=== PATIENT | female | born 1955 | race Caucasian/White ===

== ENCOUNTER 2016-07-29 14:01 | Emergency (ER) | payer OTHER ==
[2016-07-29 14:20] VITALS: BMI 30.8
[2016-07-29] MEDS ORDERED: ONDANSETRON *ODT* 4 MG TABLET SL ONE (15:20)
[2016-07-29] MEDS ORDERED: RANITIDINE HCL 150 MG TABLET (FP) PO ONE (15:20)
--- NOTE | 2016-07-29 15:20 | PDOC ---
History of Present Illness - General Chief Complaint: Pain Stated Complaint: ABD PAIN, VOMITING Time Seen by Provider: 07/29/16 15:03 History Source: Patient Exam Limitations: No Limitations - History of Present Illness Initial Comments: CHIEF COMPLAINT: 61 y/o afebrile female with PMH HLD c/o abd pain, nausea and vomiting since last night. HISTORY OF PRESENT ILLNESS: The patient states last night she started vomiting and has vomited multiple times throughout the night. Her abdomen is now sore and she tried to eat some food today but started vomiting again. She denies f/c , QUINTERO, cough, CP, SOB, back pain, hematuria, dysuria, diarrhea, constipation. Vital signs on arrival are within normal limits. REVIEW OF SYSTEMS: GENERAL/CONSTITUTIONAL: No fever/chills. No weakness. No weight change. HEAD, EYES, EARS, NOSE AND THROAT: No change in vision. No ear pain or discharge. No sore throat. CARDIOVASCULAR: No chest pain or shortness of breath. RESPIRATORY: No cough, wheezing, or hemoptysis. GASTROINTESTINAL: +abd pain, nausea, vomiting. No diarrhea or constipation. GENITOURINARY: No dysuria, frequency, or change in urination. MUSCULOSKELETAL: No joint or muscle swelling or pain. No neck or back pain. SKIN: No rash or easy bruising. NEUROLOGIC: No headache, vertigo, loss of consciousness, or loss of sensation. PSYCHIATRIC: No depression or anxiety. ENDOCRINE: No increased thirst. No abnormal weight change. HEMATOLOGIC/LYMPHATIC: No anemia, easy bleeding, or history of blood clots. ALLERGIC/IMMUNOLOGIC: No hives or skin allergy. No latex allergy. PHYSICAL EXAM: GENERAL: The patient is awake, alert, and fully oriented, in no acute distress. She is non-toxic but ill appearing. HEAD: Normal with no signs of trauma. ENT: Pupils equal, round and reactive to light, extraocular movements intact, sclera anicteric, conjunctiva clear. Neck supple. LUNGS: Clear to auscultation bilaterally. Normal excursion. No respiratory distress or use of accessory muscles. CV: RRR, S1/S2, no MRG. Cap refill < 2 sec. ABDOMEN: Soft, non-distended, TTP of epigastric region. No rebound, guarding or rigidity. BACK: No CVA TTP b/l. EXTREMITIES: Normal range of motion, no edema. NEUROLOGICAL: Normal speech, normal gait. CN II-XII grossly intact. PSYCH: Normal mood, normal affect. SKIN: Warm, dry, normal turgor, no rashes or lesions noted. Past History - Past Medical History Allergies/Adverse Reactions: Allergies Allergy/AdvReac Type Severity Reaction Status Date / Time No Known Allergies Allergy Verified 07/29/16 14:21 Home Medications: Ambulatory Orders Atorvastatin Ca [Lipitor] 10 mg PO HS 08/14/15 Cholecalciferol (Vitamin D3) [Vitamin D3] 2,000 unit PO DAILY 08/14/15 Fish Oil/Borage/Flax/Om3,6,9#1 [[place] 3-6-9 Complex Softgel] 1 each PO DAILY Gluc Nguyễn/MSM/Magnesium/Vit C [Glucosamine Complex-MSM Cap] 375 mg PO DAILY Ondansetron [Zofran Odt -] 4 mg SL TID #10 od.tablet 07/29/16 Ranitidine HCl [Zantac] 150 mg PO BID #10 tablet 07/29/16 GI Disorders: Yes (HEMORRHOIDS, POLYPS) Hypercholesterolemia: Yes - Psycho/Social/Smoking Cessation Hx Suicidal Ideation: No Smoking History: Never smoked Have you smoked in the past 12 months: No Information on smoking cessation initiated: No Hx Alcohol Use: Yes (SOCIAL) Drug/Substance Use Hx: No *Physical Exam - Vital Signs Last Vital Signs Temp Pulse Resp BP Pulse Ox 98.3 F 84 18 141/76 98 07/29/16 14:17 07/29/16 14:17 07/29/16 14:17 07/29/16 14:17 07/29/16 14:17 Medical Decision Making - Medical Decision Making A/P: 61 y/o afebrile female with gastroenteritis. Plan is as follows: 1. UA/culture 2. PO zantac 3. SL zofran Laboratory Tests 07/29/16 16:00 Urine Color Yellow Urine Appearance Slcloudy Urine pH 5.0 Ur Specific [place] 1.029 Urine Protein 2+ H Urine Glucose (UA) 2+ H Urine Ketones Trace H Urine Blood 3+ H Urine Nitrite Negative Urine Bilirubin Negative Urine Urobilinogen Negative Ur Leukocyte Esterase Negative Urine RBC 218 Urine WBC 6 Ur Epithelial Cells Rare Urine Mucus Few The patient states she feels much better since having zofran and zantac. Repeat abdominal exam reveals no TTP. Will d/c to home with rx for zantac and zofran. Instructed the patient to drink only fluids for the rest of the night and f/u with her PCP within 1 week for repeat UA. I informed her that if her UA does not show a difference when rechecked she may need to f/u with a urologist. The patient informs me that her sister and her mother had kidney disease unrelated to HTN or diabetes and her sister from kidney disease. THe patient has been told she has protein and blood in her urine in the past but hasn't followed up. I informed her of the importance of follow up and her and her daughter tell me she will follow up. The patient was instructed to return to the ER with any worsening or concerning symptoms. The patient verbalizes understanding of all instructions, has no further questions and is awaiting discharge. *DC/Admit/Observation/Transfer Diagnosis at time of Disposition: Ketonuria, Proteinuria, Vomiting - Discharge Dispostion Disposition: HOME Condition at time of disposition: Improved - Prescriptions Prescriptions: Ranitidine HCl [Zantac] 150 mg PO BID #10 tablet Ondansetron [Zofran Odt -] 4 mg SL TID #10 od.tablet - Referrals Referrals: Kierra Srivastava MD [Primary Care Provider] - Call tomorrow Wyatt Chacko MD [Staff Physician] - Call tomorrow - Patient Instructions Printed Discharge Instructions: DI for Vomiting -- Adult, [place] Diet, DI for Hematuria, Protein, Urine Additional Instructions: Discharge Instructions: -Take mediation as prescribed if needed for abdominal pain and nausea/vomiting -Drink plenty of fluids -Follow up with Dr. Mejias and Dr. Chacko as soon as possible for repeat urinalysis. -Return to the ER immediately with any worsening or concerning symptoms
[2016-07-29] MEDS ORDERED: ONDANSETRON *ODT* 4 MG TABLET ONE (15:36)
[2016-07-29] MEDS ORDERED: RANITIDINE HCL 150 MG TABLET (FP) ONE (15:36)
[2016-07-29 16:33] LABS: URINE APPEARANCE SLCLOUDY; URINE BILIRUBIN NEGATIVE (NEGATIVE); URINE COLOR YELLOW; URINE GLUCOSE (UA) 2+ (NEGATIVE); URINE KETONE TRACE (NEGATIVE); URINE LEUK ESTERASE NEGATIVE (NEGATIVE); URINE NITRITE NEGATIVE (NEGATIVE); URINE UROBILINOGEN NEGATIVE E.U./dl (0.2-1.0)
[2016-07-29 16:50] LABS: URINE BLOOD 3+ (NEGATIVE); URINE PROTEIN 2+ (NEGATIVE)
[2016-07-29 16:51] LABS: URINE MUCUS FEW; URINE RBC 218 /hpf (0-3); URINE WBC 6 /hpf (3-5)
[2016-07-29 18:46] VITALS: BP 130/87; PULSE 88; TEMP 98
== END 2016-07-29 18:46 | disposition home or self-care (01) ==
LOC: JER 14:01
DX: K52.9 Noninfective gastroenteritis and colitis, unspecified (principal); R82.4 Acetonuria; R80.8 Other proteinuria
CPT/HCPCS: 81003; 81015; 87086; 99284-25

== ENCOUNTER 2016-10-18 15:59 | Inpatient (IN) | payer OTHER ==
--- NOTE | 2016-10-18 17:23 | PDOC ---
History of Present Illness - General History Source: Patient Exam Limitations: No Limitations - History of Present Illness Initial Comments: 10/18/16 18:24 The patient is a 61 year old female, with a significant past medical history of hyperlipidemia, hemorrhoids, and polyps, who presents to the emergency department complaining of abdominal pain, nausea, vomiting, and diarrhea for approximately 5 days. The patient reports her symptoms began after having a meal at [facility] this past weekend. She describes her abdominal pain at that time as dull and constant. Since then, her symptoms have become intermittent. The patient reports 2 episodes of yellow-brown diarrhea today, and several episodes of non bloody/non melantoic diarrhea since her symptoms began. She she is unable to keep down any solids or fluids, with emetic episodes being non-bloody/non-bilious. The patient denies any fever, chills, cough, headache, or dizziness. The patient reports presenting to her PCP Friday and for her symptoms, where she was diagnosed with gastroenteritis was given omeprazole, reglan. She reports presenting to the ED in July for similar symptoms, where blood was found in her urine, and she was referred to a urologist. Urologist did not report any abnormalities. The patient currently denies dysuria, hematuria, frequency, or urgency. The patient denies any chest pain, shortness of breath, diaphoresis, or palpitations. Allergies: None reported. Past Surgical History: None reported. Social History: Non-smoker. Denies alcohol or drug use. PCP: Dr. Srivastava <Britta Mckeon - Last Filed: 10/18/16 18:25> <Ludmila Pringle - Last Filed: 10/19/16 01:50> <Marcial James - Last Filed: 10/19/16 02:33> <Aaron Chavez - Last Filed: 10/19/16 10:09> - General Chief Complaint: Pain Stated Complaint: ABD PAIN, VOMITING Time Seen by Provider: 10/18/16 16:55 Past History <Britta Mckeon - Last Filed: 10/18/16 18:25> <Ludmila Pringle - Last Filed: 10/19/16 01:50> <Marcial James - Last Filed: 10/19/16 02:33> - Past Medical History GI Disorders: Yes (HEMORRHOIDS, POLYPS) Hypercholesterolemia: Yes - Psycho/Social/Smoking Cessation Hx Suicidal Ideation: No Smoking History: Never smoked Have you smoked in the past 12 months: No Information on smoking cessation initiated: No Hx Alcohol Use: No Drug/Substance Use Hx: No Substance Use Type: None <Aaron Chavez - Last Filed: 10/19/16 10:09> - Past Medical History Allergies/Adverse Reactions: Allergies Allergy/AdvReac Type Severity Reaction Status Date / Time No Known Allergies Allergy Verified 10/18/16 16:13 Home Medications: Ambulatory Orders Atorvastatin Ca [Lipitor] 10 mg PO HS 08/14/15 Cholecalciferol (Vitamin D3) [Vitamin D3] 2,000 unit PO DAILY 08/14/15 Fish Oil/Borage/Flax/Om3,6,9#1 [[place] 3-6-9 Complex Softgel] 1 each PO DAILY Gluc Nguyễn/MSM/Magnesium/Vit C [Glucosamine Complex-MSM Cap] 375 mg PO DAILY Ondansetron [Zofran Odt -] 4 mg SL TID #10 od.tablet 07/29/16 Ranitidine HCl [Zantac] 150 mg PO BID #10 tablet 07/29/16 Review of Systems - Review of Systems Able to Perform ROS?: Yes Comments:: 10/18/16 18:24 CONSTITUTIONAL: No reported: Fever, Chills, Diaphoresis, Generalized Weakness, Malaise, Loss of Appetite HEENT: No reported: Rhinorrhea, Nasal Congestion, Throat Pain, Throat Swelling, Difficulty Swallowing, Mouth Swelling, Ear Pain, Eye Pain, Visual Changes CARDIOVASCULAR: No reported: Chest Pain, Syncope, Palpitations, Irregular Heart Rate, Lightheadedness, Peripheral Edema RESPIRATORY: No reported: Cough, Shortness of Breath, SOB with Exertion, Orthopnea, Wheezing , Stridor, Hemoptysis GASTROINTESTINAL: +Abdominal pain, +nausea, +vomiting, +diarrhea. No reported: Abdominal Distension, Constipation, Melena, Hematochezia GENITOURINARY: No reported: Dysuria, Frequency, Urgency, Hesitancy, Flank Pain, Genital Pain MUSCULOSKELETAL: No reported: Myalgia, Arthralgia, Joint Swelling, Back pain, Neck Pain SKIN: No reported: Rash, Itching, Pallor HEMEATOLOGIC/IMMUNOLOGIC: No reported: Easy Bleeding, Easy Bruising, Lymphadenopathy, Frequent infections ENDOCRINE: No reported: Unexplained Weight Gain, Unexplained Weight Loss, Heat Intolerance , Cold Intolerance NEUROLOGIC: No reported: Headache, Focal Weakness, Paresthesias, Vertigo, Lightheadedness, Unsteady Gait, Seizure, Mental Status Changes, Incontinence PSYCHIATRIC: No reported: Anxiety, Depression <Britta Mckeon - Last Filed: 10/18/16 18:25> *Physical Exam - Vital Signs Last Vital Signs Temp Pulse Resp BP Pulse Ox 99.3 F 84 18 137/57 96 10/18/16 16:12 10/18/16 16:12 10/18/16 16:12 10/18/16 16:12 10/18/16 16:12 - Physical Exam Comments: 10/18/16 18:24 GENERAL: The patient is awake, alert, and fully oriented, Nontoxic - in no acute distress. HEAD: Normocephalic, atraumatic. EYES: extraocular movements intact, sclera anicteric, conjunctiva clear. ENT: Normal voice, Moist mucous membranes. NECK: Normal range of motion, supple LUNGS: Breath sounds equal, clear to auscultation bilaterally. No wheezes, no rhonchi, no rales. HEART: Regular rate and rhythm, without murmur, rub or gallop. ABDOMEN:+Mild diffuse abdominal tenderness. Soft, normoactive bowel sounds. No guarding, no rebound. No CVA tenderness. EXTREMITIES: Normal range of motion, no edema. No clubbing or cyanosis. No cords, erythema, or tenderness. NEUROLOGICAL: No facial asymmetry, Normal speech. PSYCH: Normal mood, normal affect. SKIN: Warm, Dry, normal turgor. <Britat Mckeon - Last Filed: 10/18/16 18:25> - Vital Signs Last Vital Signs Temp Pulse Resp BP Pulse Ox 98.6 F 69 17 142/68 95 10/18/16 21:12 10/19/16 01:04 10/19/16 01:04 10/19/16 01:04 10/19/16 01:04 <Ludmila Pringle - Last Filed: 10/19/16 01:50> - Vital Signs Last Vital Signs Temp Pulse Resp BP Pulse Ox 98.6 F 69 17 142/68 95 10/18/16 21:12 10/19/16 01:04 10/19/16 01:04 10/19/16 01:04 10/19/16 01:04 <Marcial James - Last Filed: 10/19/16 02:33> - Vital Signs Last Vital Signs Temp Pulse Resp BP Pulse Ox 99.3 F 84 18 137/57 96 10/18/16 16:12 10/18/16 16:12 10/18/16 16:12 10/18/16 16:12 10/18/16 16:12 <Aaron Chavez - Last Filed: 10/19/16 10:09> ED Treatment Course - Medications Given in the ED: ED Medications Discontinued Medications Generic Name Dose Route Start Last Admin Trade Name Gena PRN Reason Stop Dose Admin Al Hydroxide/Mg Hydroxide 30 ml 10/18/16 17:50 10/18/16 18:03 Mylanta Suspension - PO 10/18/16 17:51 30 ml ONCE ONE Administration Famotidine/Sodium Chloride 20 50 mls @ 100 mls/hr 10/18/16 17:50 10/18/16 18:06 mg/ Miscellaneous IVPB 10/18/16 18:19 100 mls/hr ONCE ONE Administration Ondansetron HCl 4 mg 10/18/16 17:34 10/18/16 17:43 Zofran Injection IVPB 10/18/16 17:35 4 mg ONCE ONE Administration <Britta Mckeon - Last Filed: 10/18/16 18:25> - LABORATORY CBC & Chemistry Diagram: 10/18/16 17:50 10/18/16 18:45 - ADDITIONAL ORDERS Additional order review: Laboratory Results 10/18/16 10/18/16 10/18/16 19:22 18:45 17:50 Sodium 139 Cancelled Potassium 3.3 L Cancelled Chloride 104 Cancelled Carbon Dioxide 26 Cancelled Anion Gap 9 Cancelled BUN 9 Cancelled Creatinine 0.6 Cancelled Creat Clearance w eGFR > 60 Cancelled Random Glucose 114 H Cancelled Calcium 8.2 L Cancelled Total Bilirubin 0.5 Cancelled AST 22 Cancelled ALT 41 Cancelled Alkaline Phosphatase 150 H Cancelled Total Protein 6.3 L Cancelled Albumin 2.7 L Cancelled Lipase 379 Cancelled Urine Color Ltyellow Urine Appearance Clear Urine pH 7.0 D Ur Specific [place] 1.005 Urine Protein Negative Urine Glucose (UA) Negative Urine Ketones Negative Urine Blood 2+ H Urine Nitrite Negative Urine Bilirubin Negative Urine Urobilinogen Negative Ur Leukocyte Esterase Negative Urine RBC 1 Urine WBC 2 Ur Epithelial Cells Rare 10/18/16 17:50 RBC 4.36 MCV 90.8 MCHC 33.3 RDW 13.1 MPV 9.2 Neutrophils % 75.6 Lymphocytes % 13.7 Monocytes % 10.2 Eosinophils % 0.1 Basophils % 0.4 - Medications Given in the ED: ED Medications Discontinued Medications Generic Name Dose Route Start Last Admin Trade Name Kentrellq PRN Reason Stop Dose Admin Acetaminophen 650 mg 10/18/16 21:27 10/18/16 21:49 Tylenol - PO 10/18/16 21:28 650 mg ONCE ONE Administration Al Hydroxide/Mg Hydroxide 30 ml 10/18/16 17:50 10/18/16 18:03 Mylanta Suspension - PO 10/18/16 17:51 30 ml ONCE ONE Administration Sodium Chloride 1,000 mls @ 1,000 mls/hr 10/18/16 17:34 10/18/16 17:42 Normal Saline - IV 10/18/16 18:33 1,000 mls/hr .Q1H ONE Administration Famotidine/Sodium Chloride 20 50 mls @ 100 mls/hr 10/18/16 17:50 10/18/16 18:06 mg/ Miscellaneous IVPB 10/18/16 18:19 100 mls/hr ONCE ONE Administration Loperamide HCl 4 mg 10/18/16 21:27 10/18/16 21:49 Imodium - PO 10/18/16 21:28 4 mg ONCE ONE Administration Ondansetron HCl 4 mg 10/18/16 17:34 10/18/16 17:43 Zofran Injection IVPB 10/18/16 17:35 4 mg ONCE ONE Administration <Ludmila Pringle - Last Filed: 10/19/16 01:50> - LABORATORY CBC & Chemistry Diagram: 10/18/16 17:50 10/18/16 18:45 - ADDITIONAL ORDERS Additional order review: Laboratory Results 10/19/16 10/18/16 10/18/16 01:37 19:22 18:45 Sodium 139 Potassium 3.3 L Chloride 104 Carbon Dioxide 26 Anion Gap 9 BUN 9 Creatinine 0.6 Creat Clearance w eGFR > 60 Random Glucose 114 H Lactic Acid 0.728 Calcium 8.2 L Total Bilirubin 0.5 AST 22 ALT 41 Alkaline Phosphatase 150 H Total Protein 6.3 L Albumin 2.7 L Lipase 379 Urine Color Ltyellow Urine Appearance Clear Urine pH 7.0 D Ur Specific [place] 1.005 Urine Protein Negative Urine Glucose (UA) Negative Urine Ketones Negative Urine Blood 2+ H Urine Nitrite Negative Urine Bilirubin Negative Urine Urobilinogen Negative Ur Leukocyte Esterase Negative Urine RBC 1 Urine WBC 2 Ur Epithelial Cells Rare 10/18/16 17:50 Sodium Cancelled Potassium Cancelled Chloride Cancelled Carbon Dioxide Cancelled Anion Gap Cancelled BUN Cancelled Creatinine Cancelled Creat Clearance w eGFR Cancelled Random Glucose Cancelled Lactic Acid Calcium Cancelled Total Bilirubin Cancelled AST Cancelled ALT Cancelled Alkaline Phosphatase Cancelled Total Protein Cancelled Albumin Cancelled Lipase Cancelled Urine Color Urine Appearance Urine pH Ur Specific [place] Urine Protein Urine Glucose (UA) Urine Ketones Urine Blood Urine Nitrite Urine Bilirubin Urine Urobilinogen Ur Leukocyte Esterase Urine RBC Urine WBC Ur Epithelial Cells 10/18/16 17:50 RBC 4.36 MCV 90.8 MCHC 33.3 RDW 13.1 MPV 9.2 Neutrophils % 75.6 Lymphocytes % 13.7 Monocytes % 10.2 Eosinophils % 0.1 Basophils % 0.4 - RADIOLOGY Radiology Studies Ordered: Category Date Time Status ABDOMEN & PELVIS CT WITH CONTR [CT] Stat CT Scan 10/19/16 00:09 Taken - Medications Given in the ED: ED Medications Discontinued Medications Generic Name Dose Route Start Last Admin Trade Name Freq PRN Reason Stop Dose Admin Acetaminophen 650 mg 10/18/16 21:27 10/18/16 21:49 Tylenol - PO 10/18/16 21:28 650 mg ONCE ONE Administration Al Hydroxide/Mg Hydroxide 30 ml 10/18/16 17:50 10/18/16 18:03 Mylanta Suspension - PO 10/18/16 17:51 30 ml ONCE ONE Administration Sodium Chloride 1,000 mls @ 1,000 mls/hr 10/18/16 17:34 10/18/16 17:42 Normal Saline - IV 10/18/16 18:33 1,000 mls/hr .Q1H ONE Administration Famotidine/Sodium Chloride 20 50 mls @ 100 mls/hr 10/18/16 17:50 10/18/16 18:06 mg/ Miscellaneous IVPB 10/18/16 18:19 100 mls/hr ONCE ONE Administration Loperamide HCl 4 mg 10/18/16 21:27 10/18/16 21:49 Imodium - PO 10/18/16 21:28 4 mg ONCE ONE Administration Ondansetron HCl 4 mg 10/18/16 17:34 10/18/16 17:43 Zofran Injection IVPB 10/18/16 17:35 4 mg ONCE ONE Administration <Marcial James - Last Filed: 10/19/16 02:33> - LABORATORY CBC & Chemistry Diagram: 10/19/16 06:00 10/19/16 06:00 <Aaron Chavez - Last Filed: 10/19/16 10:09> Medical Decision Making - Medical Decision Making 10/19/16 01:50 Dr. Stanley was called directly on his cell. <Ludmila Pringle - Last Filed: 10/19/16 01:50> - Medical Decision Making 10/18/16 17:53 61y F no pmhx presents with 1 week of abd pain associated with n/v/d x 1 week, pain was constant, but then became ntermittent without associated fever/chills. n osick contacts, pt has mild diffuse ab tenderness, vitals unremarkble suspect gastroenteritis will ck labs will treat pt sypmtomatically with flulid, pepcid/maalox will reassess A portion of this note was documented by scribe services under my direction. I have reviewed the details of the note, within reason, and agree with the documentation with the following case summary and management plan written by me <Aaron Chavez - Last Filed: 10/19/16 10:09> *DC/Admit/Observation/Transfer - Attestations Scribe Attestion: 10/18/16 18:25 Documentation prepared by Britta Mckeon, acting as medical collections representative for Aaron Chavez MD. <Britta Mckeon - Last Filed: 10/18/16 18:25> <Ludmila Pringle - Last Filed: 10/19/16 01:50> - Discharge Dispostion Admit: Yes Decision to Admit order Date/Time: 10/19/16 02:34 - Attestations Physician Attestion: 10/19/16 02:34 I, Dr. Marcial James MD, attest that this document has been prepared under my direction and personally reviewed by me in its entirety. I further attest, that it accurately reflects all work, treatment, procedures and medical decision -making performed by me. <Marcial James - Last Filed: 10/19/16 02:33> <Aaron Chavez - Last Filed: 10/19/16 10:09> Diagnosis at time of Disposition: Perforation of appendix, Abdominal abscess, SBO (small bowel obstruction) Abdominal pain Qualifiers: Abdominal location: generalized Qualified Code(s): R10.84 - Generalized abdominal pain Nausea & vomiting Qualifiers: Vomiting type: unspecified Vomiting Intractability: unspecified Qualified Code( s): R11.2 - Nausea with vomiting, unspecified - Referrals
[2016-10-18] MEDS ORDERED: SODIUM CHLORIDE 1,000 ML IV ONE (17:34)
[2016-10-18] MEDS ORDERED: ONDANSETRON 4 MG/2 ML VIAL IVPB ONE (17:34)
[2016-10-18] MEDS ORDERED: ONDANSETRON 4 MG/2 ML VIAL ONE (17:38)
[2016-10-18] MEDS ORDERED: MAG HYDROX/AL HYDROX/SIMETH 355 ML ORAL.SUSP PO ONE (17:50)
[2016-10-18] MEDS ORDERED: FAMOTIDINE 20 MG/50 ML IVPB 20 MG in PREMIX 50 IVPB ONE (17:50)
[2016-10-18] MEDS ORDERED: FAMOTIDINE 20 MG/50 ML IVPB 50 ML IVPB ONE (17:54)
[2016-10-18] MEDS ORDERED: MAG HYDROX/AL HYDROX/SIMETH 30 ML UNIT-DOSE CUP ONE (17:54)
[2016-10-18 18:43] LABS: BASOPHIL 0.4 % (0-2.0); EOSINOPHIL 0.1 % (0-4.5); MCH 30.3 pg (25.7-33.7); MCHC 33.3 g/dl (32.0-36.0); MEAN CELL VOLUME 90.8 fl (80-96); MEAN PLT VOLUME 9.2 fl (7.5-11.1); NEUTROPHILS 75.6 % (42.8-82.8); PLATELET COUNT 347 K/MM3 (134-434); RDW 13.1 % (11.6-15.6); WHITE BLOOD COUNT 13.7 K/mm3 (4.0-10.0)
[2016-10-18 19:45] LABS: ALBUMIN 2.7 g/dl (3.4-5.0); ALK PHOS 150 U/L (45-117); ANION GAP 9 (8-16); BILIRUBIN,TOTAL 0.5 mg/dL (0.2-1.0); CALCIUM 8.2 mg/dL (8.5-10.1); CO2 26 mmol/L (21-32); CREATININE 0.6 mg/dL (0.55-1.02); GLUCOSE,RANDOM 114 mg/dL (74-106); SGOT/AST 22 U/L (15-37); SGPT/ALT 41 U/L (12-78); TOT PROT 6.3 g/dl (6.4-8.2)
[2016-10-18 19:53] LABS: URINE APPEARANCE CLEAR; URINE BILIRUBIN NEGATIVE (NEGATIVE); URINE COLOR LTYELLOW; URINE GLUCOSE (UA) NEGATIVE (NEGATIVE); URINE KETONE NEGATIVE (NEGATIVE); URINE LEUK ESTERASE NEGATIVE (NEGATIVE); URINE NITRITE NEGATIVE (NEGATIVE); URINE PROTEIN NEGATIVE (NEGATIVE); URINE UROBILINOGEN NEGATIVE E.U./dl (0.2-1.0)
[2016-10-18 20:03] LABS: URINE BLOOD 2+ (NEGATIVE)
[2016-10-18 20:14] LABS: URINE RBC 1 /hpf (0-3); URINE WBC 2 /hpf (3-5)
[2016-10-18] MEDS ORDERED: LOPERAMIDE HCL 2 MG CAPSULE PO ONE (21:27)
[2016-10-18] MEDS ORDERED: ACETAMINOPHEN 325 MG TABLET (FP) PO ONE (21:27)
[2016-10-18] MEDS ORDERED: LOPERAMIDE HCL 2 MG CAPSULE ONE (21:44)
[2016-10-18] MEDS ORDERED: ACETAMINOPHEN 325 MG TABLET (FP) ONE (21:44)
[2016-10-19] MEDS ORDERED: PIPERACILLIN/TAZOB 3.375 GM 50 ML IVPB ONE (01:25)
[2016-10-19] MEDS ORDERED: PIPERACILLIN/TAZOB 3.375 GM/50 ML PRE-DOCKED IVPB SCH (02:00)
--- NOTE | 2016-10-19 02:08 | PDOC ---
*Physical Exam - Vital Signs Last Vital Signs Temp Pulse Resp BP Pulse Ox 98.6 F 69 17 142/68 95 10/18/16 21:12 10/19/16 01:04 10/19/16 01:04 10/19/16 01:04 10/19/16 01:04 ED Treatment Course - LABORATORY CBC & Chemistry Diagram: 10/18/16 17:50 10/18/16 18:45 - ADDITIONAL ORDERS Additional order review: Laboratory Results 10/18/16 10/18/16 10/18/16 19:22 18:45 17:50 Sodium 139 Cancelled Potassium 3.3 L Cancelled Chloride 104 Cancelled Carbon Dioxide 26 Cancelled Anion Gap 9 Cancelled BUN 9 Cancelled Creatinine 0.6 Cancelled Creat Clearance w eGFR > 60 Cancelled Random Glucose 114 H Cancelled Calcium 8.2 L Cancelled Total Bilirubin 0.5 Cancelled AST 22 Cancelled ALT 41 Cancelled Alkaline Phosphatase 150 H Cancelled Total Protein 6.3 L Cancelled Albumin 2.7 L Cancelled Lipase 379 Cancelled Urine Color Ltyellow Urine Appearance Clear Urine pH 7.0 D Ur Specific [place] 1.005 Urine Protein Negative Urine Glucose (UA) Negative Urine Ketones Negative Urine Blood 2+ H Urine Nitrite Negative Urine Bilirubin Negative Urine Urobilinogen Negative Ur Leukocyte Esterase Negative Urine RBC 1 Urine WBC 2 Ur Epithelial Cells Rare 10/18/16 17:50 RBC 4.36 MCV 90.8 MCHC 33.3 RDW 13.1 MPV 9.2 Neutrophils % 75.6 Lymphocytes % 13.7 Monocytes % 10.2 Eosinophils % 0.1 Basophils % 0.4 - RADIOLOGY Radiology Studies Ordered: Category Date Time Status ABDOMEN & PELVIS CT WITH CONTR [CT] Stat CT Scan 10/19/16 00:09 Taken - Medications Given in the ED: ED Medications Discontinued Medications Generic Name Dose Route Start Last Admin Trade Name Freq PRN Reason Stop Dose Admin Acetaminophen 650 mg 10/18/16 21:27 10/18/16 21:49 Tylenol - PO 10/18/16 21:28 650 mg ONCE ONE Administration Al Hydroxide/Mg Hydroxide 30 ml 10/18/16 17:50 10/18/16 18:03 Mylanta Suspension - PO 10/18/16 17:51 30 ml ONCE ONE Administration Sodium Chloride 1,000 mls @ 1,000 mls/hr 10/18/16 17:34 10/18/16 17:42 Normal Saline - IV 10/18/16 18:33 1,000 mls/hr .Q1H ONE Administration Famotidine/Sodium Chloride 20 50 mls @ 100 mls/hr 10/18/16 17:50 10/18/16 18:06 mg/ Miscellaneous IVPB 10/18/16 18:19 100 mls/hr ONCE ONE Administration Loperamide HCl 4 mg 10/18/16 21:27 10/18/16 21:49 Imodium - PO 10/18/16 21:28 4 mg ONCE ONE Administration Ondansetron HCl 4 mg 10/18/16 17:34 10/18/16 17:43 Zofran Injection IVPB 10/18/16 17:35 4 mg ONCE ONE Administration Medical Decision Making - Medical Decision Making 10/19/16 02:06 Pt is received on sign out; comfortable and in NAD. She has normal labs and is still having symptoms of n/v. She is given PO/IV contrast abd/pelvis and this shows an appendix perforation with abscess 3x5cm; she has no rebound or guarding. I have discussed the case with the surgeon house calls nurse practitioner Lizeth, who endorses starting antibiotics, fluid support, NPO and admit to medicine. I have endorsed the patient to Dr. Tinoco and SECRETARY RECEPTIONIST Cris. *DC/Admit/Observation/Transfer Diagnosis at time of Disposition: Rupture of appendix, Abdominal abscess, Small bowel obstruction Abdominal pain Qualifiers: Abdominal location: generalized Qualified Code(s): R10.84 - Generalized abdominal pain Nausea and vomiting Qualifiers: Vomiting type: unspecified Vomiting Intractability: unspecified Qualified Code( s): R11.2 - Nausea with vomiting, unspecified - Referrals Referrals: Kierra Srivastava MD [Primary Care Provider] - - Patient Instructions - Post Discharge Activity
[2016-10-19] MEDS ORDERED: ONDANSETRON 4 MG/2 ML VIAL IVPB PRN (02:15)
[2016-10-19] MEDS ORDERED: morphine CARPU-JECT 2 MG/1 ML DISP.SYRIN IVPUSH PRN (02:15)
[2016-10-19] MEDS ORDERED: KCL 10 MEQ IVPB 100 ML IVPB ONE ×2 (02:46→02:56)
[2016-10-19] MEDS: KCL 10 MEQ IVPB 100 ML IVPB SCH ×4 (02:53→13:45)
[2016-10-19] MEDS: SODIUM CHLORIDE 1,000 ML IV SCH ×2 (02:53→18:44)
--- NOTE | 2016-10-19 03:28 | HP ---
CHIEF COMPLAINT: Abd pain, N/V/D PCP: Marisa Whitmore; GI: [place]; Urology: [place] HISTORY OF PRESENT ILLNESS: This is a 61 year old female with a past medical history of hyperlipidemia and colon polyps who presented to the ED with abdominal pain, nausea, vomiting and diarrhea x 5 days. She denies any blood in vomitus or stool; describes vomitus as being whatever she had eaten. She states that she went to her PCP on Friday and Friday and was given medication that didn't help. She states that she was also seen in July for similar symptoms, was found to have hematuria, but a work up with was uneventful. An upper endoscopy/colonoscopy 07/2015 revealed colon polyps. On exam, pt denies any further abdominal pain or nausea. ER course was notable for: (1) CT scan with SBO and acute appendicitis (2) WBC 13.7 (3) Recent Travel: pt denies PAST MEDICAL HISTORY: Hyperlipidemia colon polyps PAST SURGICAL HISTORY: hysterectomy 1999 with one oopherectomy ? right maybe, pt unsure Social History: Smoking: pt denies Alcohol: pt denies Drugs: pt denies Family History: mother age 68, renal/HTN father , unkown brother alive, alcoholic brother alive and well Allergies No Known Allergies Allergy (Verified 10/18/16 16:13) HOME MEDICATIONS: 3 Medication Instructions Recorded Atorvastatin Ca [Lipitor] 10 mg PO HS 08/14/15 Cholecalciferol (Vitamin D3) 2,000 unit PO DAILY 08/14/15 [Vitamin D3] Fish Oil/Borage/Flax/Om3,6,9#1 1 each PO DAILY 08/14/15 [[place] 3-6-9 Complex Softgel] Gluc Nguyễn/MSM/Magnesium/Vit C 375 mg PO DAILY 08/14/15 [Glucosamine Complex-MSM Cap] Ondansetron [Zofran Odt -] 4 mg SL TID #10 od.tablet 07/29/16 Ranitidine HCl [Zantac] 150 mg PO BID #10 tablet 07/29/16 REVIEW OF SYSTEMS CONSTITUTIONAL: Absent: fever, chills, diaphoresis, generalized weakness, malaise, loss of appetite, weight change HEENT: Absent: rhinorrhea, nasal congestion, throat pain, throat swelling, difficulty swallowing, mouth swelling, ear pain, eye pain, visual changes CARDIOVASCULAR: Absent: chest pain, syncope, palpitations, irregular heart rate, lightheadedness , peripheral edema RESPIRATORY: Absent: cough, shortness of breath, dyspnea with exertion, orthopnea, wheezing, stridor, hemoptysis GASTROINTESTINAL: Present: abdominal pain, nausea, vomiting, diarrhea Absent: abdominal distension, constipation, melena, hematochezia GENITOURINARY: Absent: dysuria, frequency, urgency, hesitancy, hematuria, flank pain, genital pain MUSCULOSKELETAL: Absent: myalgia, arthralgia, joint swelling, back pain, neck pain SKIN: Absent: rash, itching, pallor HEMATOLOGIC/IMMUNOLOGIC: Absent: easy bleeding, easy bruising, lymphadenopathy, frequent infections ENDOCRINE: Absent: unexplained weight gain, unexplained weight loss, heat intolerance, cold intolerance NEUROLOGIC: Absent: headache, focal weakness or paresthesias, dizziness, unsteady gait, seizure, mental status changes, bladder or bowel incontinence PSYCHIATRIC: Absent: anxiety, depression, suicidal or homicidal ideation, hallucinations. PHYSICAL EXAMINATION Vital Signs - 24 hr 3 10/18/16 10/18/16 10/18/16 16:12 19:22 19:26 Temperature 99.3 F 99.0 F Pulse Rate 84 Pulse Rate [ 78 Radial] Respiratory 18 17 Rate Blood Pressure 137/57 Blood Pressure 142/67 [Left Arm] O2 Sat by Pulse 96 100 100 Oximetry (%) 3 10/18/16 10/19/16 21:12 01:04 Temperature 98.6 F Pulse Rate Pulse Rate [ 82 69 Radial] Respiratory 18 17 Rate Blood Pressure Blood Pressure 133/99 142/68 [Left Arm] O2 Sat by Pulse 96 95 Oximetry (%) GENERAL: Awake, alert, and fully oriented, in no acute distress. HEAD: Normal with no signs of trauma. EYES: Pupils equal, round and reactive to light, extraocular movements intact, sclera anicteric, conjunctiva clear. No lid lag. EARS, NOSE, THROAT: Ears normal, nares patent, oropharynx clear without exudates. Moist mucous membranes. NECK: Normal range of motion, supple without lymphadenopathy, JVD, or masses. LUNGS: Breath sounds equal, clear to auscultation bilaterally. No wheezes, and no crackles. No accessory muscle use. HEART: Regular rate and rhythm, normal S1 and S2 without murmur, rub or gallop. ABDOMEN: Soft, nontender, not distended, tinkling bowel sounds right upper quadrant, no guarding, no rebound, no masses. No hepatomegaly or splenomegaly. MUSCULOSKELETAL: Normal range of motion at all joints. No bony deformities or tenderness. No CVA tenderness. UPPER EXTREMITIES: 2+ pulses, warm, well-perfused. No cyanosis. No clubbing. No peripheral edema. LOWER EXTREMITIES: 2+ pulses, warm, well-perfused. No calf tenderness. No peripheral edema. NEUROLOGICAL: Cranial nerves II-XII intact. Normal speech. Normal gait. PSYCHIATRIC: Cooperative. Good eye contact. Appropriate mood and affect. SKIN: Warm, dry, normal turgor, no rashes or lesions noted, normal capillary refill. Laboratory Results - last 24 hr 3 10/18/16 10/18/16 10/18/16 10/19/16 17:50 17:50 18:45 01:37 WBC 13.7 H RBC 4.36 Hgb 13.2 Hct 39.6 MCV 90.8 MCHC 33.3 RDW 13.1 Plt Count 347 MPV 9.2 Neutrophils % 75.6 Lymphocytes % 13.7 Monocytes % 10.2 Eosinophils % 0.1 Basophils % 0.4 Sodium Cancelled 139 Potassium Cancelled 3.3 L Chloride Cancelled 104 Carbon Dioxide Cancelled 26 Anion Gap Cancelled 9 BUN Cancelled 9 Creatinine Cancelled 0.6 Creat Clearance w eGFR Cancelled > 60 Random Glucose Cancelled 114 H Lactic Acid 0.728 Calcium Cancelled 8.2 L Total Bilirubin Cancelled 0.5 AST Cancelled 22 ALT Cancelled 41 Alkaline Phosphatase Cancelled 150 H Total Protein Cancelled 6.3 L Albumin Cancelled 2.7 L Lipase Cancelled 379 Urine Color Urine Appearance Urine pH Ur Specific [place] Urine Protein Urine Glucose (UA) Urine Ketones Urine Blood Urine Nitrite Urine Bilirubin Urine Urobilinogen Ur Leukocyte Esterase Urine RBC Urine WBC Ur Epithelial Cells 3 Urine Color Ltyellow 10/18/16 19:22 Urine Appearance Clear 10/18/16 19:22 Urine pH 7.0 (5.0-8.0) D 10/18/16 19:22 Ur Specific [place] 1.005 (1.001-1.035) 10/18/16 19:22 Urine Protein Negative (NEGATIVE) 10/18/16 19:22 Urine Glucose (UA) Negative (NEGATIVE) 10/18/16 19:22 Urine Ketones Negative (NEGATIVE) 10/18/16 19:22 Urine Blood 2+ (NEGATIVE) H 10/18/16 19:22 Urine Nitrite Negative (NEGATIVE) 10/18/16 19:22 Urine Bilirubin Negative (NEGATIVE) 10/18/16 19:22 Ur Leukocyte Esterase Negative (NEGATIVE) 10/18/16 19:22 Urine RBC 1 /hpf (0-3) 10/18/16 19:22 Urine WBC 2 /hpf (3-5) 10/18/16 19:22 Ur Epithelial Cells Rare /hpf (FEW) 10/18/16 19:22 Exam: Contrast-enhanced CT abdomen and pelvis Images: 507 Clinical indication : Abdominal pain. Findings: The lung bases are clear. The upper abdominal viscera have a normal appearance. The adrenal glands and kidneys have a normal appearance. There is no evidence of urinary tract obstruction. Dilated small bowel loops are noted throughout the upper and mid abdomen and measure up to 4.9 cm in diameter. An abrupt transition is noted in the mid abdomen involving a feculent small bowel loop (images 98 through 106. Distal small bowel loops are collapsed. At the level of obstruction the bowel appears thickened and inflamed. There is a surrounding collection measuring up to 5 x 3 cm in diameter with peripheral enhancement and appears to be the result of a perforated appendicitis. The appendix is seen crossing the midline and is thickwalled and hyperemic measuring up to 11 mm in diameter. Again distal small bowel loops are collapsed. The patient is status post hysterectomy. No adnexal masses are seen. Peripherally enhancing inflammatory fluid is also present in the cul-de-sac. Impression: Acute appendicitis with probable perforation of the tip resulting in a mesenteric abscess and a small bowel obstruction in the pelvis. ASSESSMENT/PLAN: 61yF with PMH Hyperlipidemia, colon polyps who presented with abdominal pain, N/ V/D. She is being admitted for acute appendicitis with probable rupture and SBO. Acute appendicitis - ED MD d/w Surgeon, Dr. Stanley, who recommends NPO, IVF, antibiotics and IR for drain placement - zosyn given in ED. Will cont same. - ID consult SBO - ED MD d/w surgeon, Dr. Stanley, who does not recommend NGT placement - cont NPO and IVF DVT PPX - heparin 5000u SC TID, hold if having drain placed tomorrow FEN - NS @ 100cc/hr - hypokalemia- repleted with 2 runs of 10mEq, repeat in am - NPO Dispo: Pt currently requires inpatient management of her emergent condition. Visit type - Emergency Visit Emergency Visit: Yes ED Registration Date: 10/18/16 Care time: The patient presented to the Emergency Department on the above date and was hospitalized for further evaluation of their emergent condition. - New Patient This patient is new to me today: Yes Date on this admission: 10/19/16 - Critical Care Critical Care patient: No
[2016-10-19 05:08] VITALS: BMI 28.5
[2016-10-19] MEDS: HEPARIN NA (PORCINE) 5,000 UNITS/ML 1ML VIAL SQ SCH ×3 (05:45→22:46)
[2016-10-19 08:22] LABS: BASOPHIL 0.5 % (0-2.0); EOSINOPHIL 1.8 % (0-4.5); MCH 30.3 pg (25.7-33.7); MCHC 33.1 g/dl (32.0-36.0); MEAN CELL VOLUME 91.5 fl (80-96); MEAN PLT VOLUME 8.8 fl (7.5-11.1); PLATELET COUNT 302 K/MM3 (134-434); RDW 13.4 % (11.6-15.6); WHITE BLOOD COUNT 11.9 K/mm3 (4.0-10.0)
[2016-10-19 08:50] LABS: CALCIUM 8.2 mg/dL (8.5-10.1); CREATININE 0.5 mg/dL (0.55-1.02); MAGNESIUM 2.2 mg/dL (1.8-2.4); PHOSPHOROUS 3.1 mg/dL (2.5-4.9)
--- NOTE | 2016-10-19 08:58 | HOSP ---
Physical Examination Vital Signs: Vital Signs Temperature 98.0 F 10/19/16 05:16 Pulse Rate 69 10/19/16 05:16 Respiratory Rate 18 10/19/16 05:16 Blood Pressure 133/73 10/19/16 05:16 O2 Sat by Pulse Oximetry (%) 100 10/19/16 04:28 Labs: CBC, BMP 10/19/16 06:00 Hospitalist Encounter Assessment: Subjective: The patient was seen and examined a the bedside, she reports moderate RLQ pain and diarrhea. She reports 3 bowel movements this morning. Discussed with Dr. Wing who reviewed CT scan and states fluid collection at transition point causing SBO likely too deep for IR drainage placement. Recommend KUB this afternoon to evaluate if contrast is distal from transition point. F/u surgery consult WBC trending down 13.7-?11.9 Continue Zosyn Current Medications Generic Name Dose Route Start Last Admin Trade Name Freq PRN Reason Stop Dose Admin Heparin Sodium (Porcine) 5,000 unit 10/19/16 06:00 10/19/16 05:45 Heparin - SQ Not Given TID OVIDIO Sodium Chloride 1,000 mls @ 100 mls/hr 10/19/16 02:15 10/19/16 02:53 Normal Saline - IV 100 mls/hr ASDIR OVIDIO Administration Morphine Sulfate 1 mg 10/19/16 02:15 Morphine Injection - IVPUSH Q4H PRN PAIN Ondansetron HCl 4 mg 10/19/16 02:15 Zofran Injection IVPB Q6H PRN NAUSEA Piperacillin Sod/Tazobactam Sod 3.375 gm 10/19/16 02:00 10/19/16 01:44 Zosyn 3.375gm Ivpb (Pre-Docked) IVPB 3.375 gm Q8H-IV OVIDIO Administration Protocol Objective: Vital Signs Period Temp Pulse Resp BP Sys/[place] Pulse Ox Last 24 Hr 98.0 F-99.3 F 67-84 17-18 130-142/57-99 95-100 Physical Exam: General: NAD, A&x3 Lungs: CTA bilaterally Heart: RRR, S1S2 Abd: moderate RLQ tenderness. Soft, non-distended. Normoactive bowel sounds Ext: Warm, well-perfused. 2+ DP/PT bilaterally Neuro: CN 2-12 intact. Gait not observed CBCD WBC 11.9 K/mm3 (4.0-10.0) H 10/19/16 06:00 RBC 4.10 M/mm3 (3.60-5.2) 10/19/16 06:00 Hgb 12.4 GM/dL (10.7-15.3) 10/19/16 06:00 Hct 37.5 % (32.4-45.2) 10/19/16 06:00 MCV 91.5 fl (80-96) 10/19/16 06:00 MCHC 33.1 g/dl (32.0-36.0) 10/19/16 06:00 RDW 13.4 % (11.6-15.6) 10/19/16 06:00 Plt Count 302 K/MM3 (134-434) 10/19/16 06:00 MPV 8.8 fl (7.5-11.1) 10/19/16 06:00 CMP Sodium 139 mmol/L (136-145) 10/19/16 06:00 Potassium 3.3 mmol/L (3.5-5.1) L 10/19/16 06:00 Chloride 105 mmol/L (98-107) 10/19/16 06:00 Carbon Dioxide 24 mmol/L (21-32) 10/19/16 06:00 Anion Gap 10 (8-16) 10/19/16 06:00 BUN 9 mg/dL (7-18) 10/19/16 06:00 Creatinine 0.5 mg/dL (0.55-1.02) L 10/19/16 06:00 Creat Clearance w eGFR > 60 (>60) 10/18/16 18:45 Random Glucose 89 mg/dL (74-106) D 10/19/16 06:00 Calcium 8.2 mg/dL (8.5-10.1) L 10/19/16 06:00 Total Bilirubin 0.5 mg/dL (0.2-1.0) 10/18/16 18:45 AST 22 U/L (15-37) 10/18/16 18:45 ALT 41 U/L (12-78) 10/18/16 18:45 Alkaline Phosphatase 150 U/L (45-117) H 10/18/16 18:45 Total Protein 6.3 g/dl (6.4-8.2) L 10/18/16 18:45 Albumin 2.7 g/dl (3.4-5.0) L 10/18/16 18:45 Assessment: This is a 61 year old female with PMHx of hyperlipidemia and colon polyps who presented to the ED with abdominal pain, nausea, vomiting, and diarrhea x5 days and was found to have an SBO with fluid collection 2/2 ruptured appendix. Plan: 1) GI: SBO, abscess 2/2 ruptured appendix - WBC trending down - Per surgery, no NGT for now. If nausea or vomiting, will consider inserting NGT - Discussed with IR, as above - KUB this afternoon to assess if contrast is distal from transition point - Continue Zosyn - IV fluids - Morphine prn pain - Zofran prn nausea/vomiting - F/u surgery consult - F/u ID consult 2) F/E/N: - Monitor electrolytes - NPO - IV fluids - Hypokalemia: Kcl 20meq IVPB once 3) Prophylaxis: - OOB ambulating - Heparin 5,000u sq tid 4) Dispo: - Requires continued inpatient care CODE STATUS: FULL CODE
--- NOTE | 2016-10-19 09:57 | PN ---
Progress Note (short form) - Note Progress Note: ID Consult dictated Probable perforated appendix with periappendiceal abscess Leukocytosis, possible sepsis Possible SBO Await c/s Continue empiric zosyn
--- NOTE | 2016-10-19 10:26 | CONSULT ---
- Consultation REQUESTING PROVIDER: SUSIE; SENIOR SYSTEMS ADMINISTRATOR CONSULT REQUEST: CTSP for evaluation and management of perforated appendicitis w /abscess formation. PCP:Yuko Christian HISTORY OF PRESENT ILLNESS: 61 y/o female developed abdominal pain; n/ v starting 10/13/16; she sought tx. w/her PCP 48 hours later and was txed for gastroenteritis w/o improvemen; she presented here where a w/u was done revealing perforated appendicitis w/abscess formation and possible sbo; she was made NPO and started on IVABS and IVF; she currently has no pain. PMHx: hyperlipidemia PSHx: PARKER Home Medications Medication Instructions Recorded Atorvastatin Ca [Lipitor] 10 mg PO HS 08/14/15 Cholecalciferol (Vitamin D3) 2,000 unit PO DAILY 08/14/15 [Vitamin D3] Fish Oil/Borage/Flax/Om3,6,9#1 1 each PO DAILY 08/14/15 [[place] 3-6-9 Complex Softgel] Gluc Nguyễn/MSM/Magnesium/Vit C 375 mg PO DAILY 08/14/15 [Glucosamine Complex-MSM Cap] Ondansetron [Zofran Odt -] 4 mg SL TID #10 od.tablet 07/29/16 Ranitidine HCl [Zantac] 150 mg PO BID #10 tablet 07/29/16 Allergies Allergy/AdvReac Type Severity Reaction Status Date / Time No Known Allergies Allergy Verified 10/18/16 16:13 REVIEW OF SYSTEMS: CONSTITUTIONAL: Absent: fever, chills, diaphoresis, generalized weakness, malaise, loss of appetite, weight change CARDIOVASCULAR: Absent: chest pain, syncope, palpitations, irregular heart rate, lightheadedness , peripheral edema RESPIRATORY: Absent: cough, shortness of breath, dyspnea with exertion, wheezing, stridor, hemoptysis GASTROINTESTINAL: Present: abdominal pain, abdominal distension, nausea, vomiting, diarrhea GENITOURINARY: Absent: dysuria, frequency, urgency, hesitancy, hematuria, flank pain, genital pain MUSCULOSKELETAL: Absent: myalgia, arthralgia, joint swelling, back pain, neck pain SKIN: Absent: rash, itching, pallor HEMATOLOGIC/IMMUNOLOGIC: Absent: easy bleeding, easy bruising, lymphadenopathy NEUROLOGIC: Absent: headache, focal weakness, paresthesias, dizziness, unsteady gait, seizure, mental status changes, bladder or bowel incontinence PSYCHIATRIC: Absent: anxiety, depression, suicidal or homicidal ideation, hallucinations. PHYSICAL EXAM: GENERAL: Awake, alert, and fully oriented, in no acute distress. HEAD: Normal with no signs of trauma. EYES: sclera anicteric, conjunctiva clear. NECK: Normal ROM, supple without lymphadenopathy, JVD, or masses. LUNGS: Clear to auscultation bilat anteriorly. No wheezes, and no crackles. No accessory muscle use. HEART: Regular rate and rhythm. No murmurs ABDOMEN: Soft,slight RLQ tenderness,slightly distended, high pitched bowel sounds, no guarding, no rebound, no masses. No organomegaly. Healed lower midline scar w/o hernia. MUSCULOSKELETAL: Normal ROM at all joints. No bony deformities or tenderness. No CVA tenderness. UPPER EXTREMITIES: 2+ pulses, warm, well-perfused. No cyanosis. Cap refill <2 seconds. No peripheral edema. LOWER EXTREMITIES: 2+ pulses, warm, well-perfused. No calf tenderness. No peripheral edema. NEUROLOGICAL: Normal speech, gait not observed. PSYCH: Cooperative. Good eye contact. Appropriate mood and affect. SKIN: Warm, dry, normal turgor, no rashes or lesions noted. Vital Signs Temperature 98.0 F 10/19/16 05:16 Pulse Rate 69 10/19/16 05:16 Respiratory Rate 18 10/19/16 05:16 Blood Pressure 133/73 10/19/16 05:16 O2 Sat by Pulse Oximetry (%) 100 10/19/16 04:28 Lab Results WBC 11.9 K/mm3 (4.0-10.0) H 10/19/16 06:00 RBC 4.10 M/mm3 (3.60-5.2) 10/19/16 06:00 Hgb 12.4 GM/dL (10.7-15.3) 10/19/16 06:00 Hct 37.5 % (32.4-45.2) 10/19/16 06:00 MCV 91.5 fl (80-96) 10/19/16 06:00 MCHC 33.1 g/dl (32.0-36.0) 10/19/16 06:00 RDW 13.4 % (11.6-15.6) 10/19/16 06:00 Plt Count 302 K/MM3 (134-434) 10/19/16 06:00 Sodium 139 mmol/L (136-145) 10/19/16 06:00 Potassium 3.3 mmol/L (3.5-5.1) L 10/19/16 06:00 Chloride 105 mmol/L (98-107) 10/19/16 06:00 Carbon Dioxide 24 mmol/L (21-32) 10/19/16 06:00 Anion Gap 10 (8-16) 10/19/16 06:00 BUN 9 mg/dL (7-18) 10/19/16 06:00 Creatinine 0.5 mg/dL (0.55-1.02) L 10/19/16 06:00 Random Glucose 89 mg/dL (74-106) D 10/19/16 06:00 Calcium 8.2 mg/dL (8.5-10.1) L 10/19/16 06:00 IMP: perforated appendicitis w/ abscess formation and possible SBO. PLAN:NPO/IVF/IVABS/evaluation for IR drainage; f/u abdominal films; follow clinical course; do not believe attempt at laparoscopic appendectomy is indicated at this time unless change in clinical course warrants; if she responds to this tx. she will then need interval appendectomy; d/w patient and referring provider. Tiago Stanley MD FACS Visit type - Case Type Case Type: ED Admission - Emergency Emergency Visit: Yes ED Registration Date: 10/19/16 Care time: The patient presented to the Emergency Department on the above date and was hospitalized for further evaluation of their emergent condition. - New patient This patient is new to me today: Yes Date on this admission: 10/19/16 - Critical Care Critical Care patient: No
[2016-10-19] MEDS: PIPERACILLIN/TAZOB 3.375 GM 50 ML IVPB SCH ×2 (10:52→18:44)
--- NOTE | 2016-10-19 10:57 | CONS ---
DATE OF CONSULTATION: HISTORY: The patient is a 61-year-old female evaluated for probable appendiceal abscess. She presented to the hospital on October 18, 2016 with a 5-day history of abdominal pain, nausea, vomiting, and nonbloody diarrhea. Symptoms occurred after a meal. She denies any associated fevers or chills. She was evaluated in the emergency room where a CAT scan of the abdomen and pelvis was performed. It showed evidence of probable perforated appendix with intra-abdominal collection as well as possible small bowel obstruction. She was empirically treated with Zosyn. Her course was complicated by elevated white blood cell count. At the present time, she has no complaints of abdominal pain. She has been having last bowel movements, which she attributes to drinking oral contrast for the CAT scan. No reports of rectal bleeding. She denies any recurrent nausea or vomiting. PAST MEDICAL HISTORY: Positive for hypertension, colon polyps. PAST SURGICAL HISTORY: Status post hysterectomy. ALLERGIES: No known allergies. MEDICATIONS: Include Tylenol, Mylanta, Pepcid, Imodium, Zofran. SOCIAL HISTORY: Negative for tobacco, alcohol, or illicit drug use. SYSTEMS REVIEW: Neurologic: No local, seizure activity, focal weakness. Cardiac: Negative chest pain or palpitations. Respiratory: Negative cough or sputum production. Gastrointestinal: As per HPI. Genitourinary: Negative for urinary tract infection. LABORATORY DATA: White count on admission 13.7, presently 11.9, hematocrit 37.5, platelet count 302, creatinine 0.5. Blood cultures pending. PHYSICAL EXAMINATION: General: She is supine in bed. She is in no acute distress. Not acutely toxic appearing. Vital Signs: Temperature 98, blood pressure 133/73, pulse 69 and regular, respirations 18 per minute. HEENT: Sclerae anicteric. Heart: Sounds S1, S2. Lungs: Clear. Abdomen: No appreciable bowel sounds. Abdomen is soft. No tenderness elicited. No mass, rebound, or rigidity. No right lower quadrant tenderness to deep palpation. Extremities: Have 1+ edema. IMPRESSION: 1. Probable perforated appendix with periappendiceal abscess. 2. Leukocytosis, possible sepsis. 3. Possible small bowel obstruction. PLAN: Await culture results. Surgical follow up. Empiric antibiotic coverage. Intra-abdominal pathogens with Zosyn 3.37 g IV piggyback every 8 hours. TRI LOO M.D. DIANNE/[id number]
[2016-10-20] MEDS: PIPERACILLIN/TAZOB 3.375 GM 50 ML IVPB SCH ×3 (01:45→18:22)
[2016-10-20] MEDS: HEPARIN NA (PORCINE) 5,000 UNITS/ML 1ML VIAL SQ SCH ×3 (06:50→22:00)
[2016-10-20 08:27] LABS: BASOPHIL 0.6 % (0-2.0); EOSINOPHIL 0.3 % (0-4.5); MCH 30.7 pg (25.7-33.7); MCHC 33.9 g/dl (32.0-36.0); MEAN CELL VOLUME 90.4 fl (80-96); MEAN PLT VOLUME 8.4 fl (7.5-11.1); NEUTROPHILS 73.2 % (42.8-82.8); PLATELET COUNT 315 K/MM3 (134-434); RDW 12.7 % (11.6-15.6); WHITE BLOOD COUNT 11.3 K/mm3 (4.0-10.0)
[2016-10-20 09:01] LABS: ALBUMIN 2.5 g/dl (3.4-5.0); ANION GAP 14 (8-16); CALCIUM 8.2 mg/dL (8.5-10.1); CO2 23 mmol/L (21-32); GLUCOSE,RANDOM 59 mg/dL (74-106)
[2016-10-20 09:06] LABS: ALK PHOS 130 U/L (45-117); BILIRUBIN,TOTAL 0.5 mg/dL (0.2-1.0); CREATININE 0.4 mg/dL (0.55-1.02); SGOT/AST 20 U/L (15-37); SGPT/ALT 40 U/L (12-78); TOT PROT 5.9 g/dl (6.4-8.2)
--- NOTE | 2016-10-20 09:43 | PN ---
Progress Note (short form) - Note Progress Note: Attending Surgeon No nausea/vomiting; had BM gas yesterday; today ??. No c/o pain. O/E VSS AF abdomen-soft/flat/nontender/minimal tympany; BS ?? labs/films reviewed IMP:Perforated appendicitis w/ abscess(es) and probable ileus vs. sbo. PLAN: NPO/IVF/IVAB's/Obstructive series in AM;? re-eval for IR drainage; check labs. Tiago Stanley MD FACS
[2016-10-20] MEDS: D5-NS + 20 MEQ KCL - 1,000 ML IV SCH (10:37)
[2016-10-20] MEDS: SODIUM CHLORIDE 1,000 ML IV SCH (10:38)
--- NOTE | 2016-10-20 10:45 | PN ---
Physical Exam: SUBJECTIVE: Patient seen and examined. Last BM was yesterday morning. Has passed very little if any flatus. Denies pain. Denies nausea, vomiting. OBJECTIVE: Vital Signs Period Temp Pulse Resp BP Sys/[place] Pulse Ox Last 24 Hr 98.5 F-99.4 F 73-82 18-20 120-126/61-64 100 GENERAL: The patient is awake, alert, and fully oriented, in no acute distress. HEAD: Normal with no signs of trauma. EYES: PERRL, extraocular movements intact, sclera anicteric, conjunctiva clear. No ptosis. LUNGS: Breath sounds equal, clear to auscultation bilaterally, no wheezes, no crackles, no accessory muscle use. HEART: Regular rate and rhythm, S1, S2, + murmur, no rub or gallop. ABDOMEN: Soft, nondistended, normoactive bowel sounds, mild mid and RLQ tenderness, no guarding, no rebound EXTREMITIES: 2+ pulses, warm, well-perfused, no edema. NEUROLOGICAL: Cranial nerves II through XII grossly intact. Normal speech, gait not observed. PSYCH: Normal mood, normal affect. SKIN: Warm, dry, normal turgor, no rashes or lesions noted Laboratory Results - last 24 hr 10/20/16 10/20/16 06:30 06:30 WBC 11.3 H RBC 4.01 Hgb 12.3 Hct 36.2 MCV 90.4 MCHC 33.9 RDW 12.7 Plt Count 315 MPV 8.4 Neutrophils % 73.2 Lymphocytes % 17.3 D Monocytes % 8.6 Eosinophils % 0.3 D Basophils % 0.6 Sodium 141 Potassium 3.3 L Chloride 104 Carbon Dioxide 23 Anion Gap 14 BUN 9 Creatinine 0.4 L Creat Clearance w eGFR > 60 Random Glucose 59 L D Calcium 8.2 L Total Bilirubin 0.5 AST 20 ALT 40 Alkaline Phosphatase 130 H Total Protein 5.9 L Albumin 2.5 L Active Medications Generic Name Dose Route Start Last Admin Trade Name Freq PRN Reason Stop Dose Admin Heparin Sodium (Porcine) 5,000 unit 10/19/16 06:00 10/20/16 06:50 Heparin - SQ 5,000 unit TID OVIDIO Administration Piperacillin Sod/Tazobactam Sod 50 mls @ 100 mls/hr 10/19/16 10:00 10/20/16 10: 33 Zosyn 3.375gm Ivpb (Pre-Docked) IVPB 100 mls/hr Q8H-IV OVIDIO Administration Protocol Potassium Chloride 100 mls @ 100 mls/hr 10/20/16 10:30 Potassium Chloride 10 Meq Premix Ivpb - IVPB 10/20/16 13:29 Q60M OVIDIO Dextrose/Sodium Chloride 1,000 mls @ 125 mls/hr 10/20/16 10:15 10/20/16 10:37 Dextrose 5%-Normal Saline+20 Meq Kcl - IV 125 mls/hr ASDIR OVIDIO Administration Morphine Sulfate 1 mg 10/19/16 02:15 Morphine Injection - IVPUSH Q4H PRN PAIN Ondansetron HCl 4 mg 10/19/16 02:15 Zofran Injection IVPB Q6H PRN NAUSEA Imaging 10/19 CTAP: (1) acute appendicitis with associated interloop abscess 4.7 x 3.7cm ; (2) rim-enhancing fluid 5 x 3cm in cul-de-sac; (3) SBO 10/19 KUB flat: SBO ASSESSMENT/PLAN: 61 year-old female with a PMH of HLD, colon polyps, admitted for acute perforated appendicitis with abscess formation and SBO. Acute perforated appendicitis with abscess formation --afebrile, mild leukocytosis, hemodynamically stable --blood cultures pending --per surgery, repeat FUA in am --ask IR to re-evaluate for possible drainage in am --IV fluids, NPO --continue Zosyn (day #2) SBO --last BM 10/19 in morning, minimal flatus --good bowel sounds --encouraged oob, ambulation Hypokalemia --replete IV F/E/N Fluids: D5NS+20K @ 125mL/hr Electrolytes: replete as indicated Nutrition: NPO DVT prophylaxis: subq heparin Dispo: continues to require inpatient care. Full Code. Visit type - Emergency Visit Emergency Visit: Yes ED Registration Date: 10/19/16 Care time: The patient presented to the Emergency Department on the above date and was hospitalized for further evaluation of their emergent condition. - New Patient This patient is new to me today: Yes Date on this admission: 10/20/16 - Critical Care Critical Care patient: No
[2016-10-20] MEDS: KCL 10 MEQ IVPB 100 ML IVPB SCH ×3 (11:44→16:06)
[2016-10-21] MEDS: D5-NS + 20 MEQ KCL - 1,000 ML IV SCH ×2 (01:02→10:34)
[2016-10-21] MEDS: PIPERACILLIN/TAZOB 3.375 GM 50 ML IVPB SCH ×3 (01:02→17:59)
[2016-10-21] MEDS: HEPARIN NA (PORCINE) 5,000 UNITS/ML 1ML VIAL SQ SCH ×3 (06:13→22:16)
[2016-10-21 09:46] LABS: BASOPHIL 0.5 % (0-2.0); EOSINOPHIL 0.4 % (0-4.5); MCH 30.9 pg (25.7-33.7); MCHC 34.1 g/dl (32.0-36.0); MEAN CELL VOLUME 90.6 fl (80-96); NEUTROPHILS 73.5 % (42.8-82.8); PLATELET COUNT 357 K/MM3 (134-434); RDW 12.8 % (11.6-15.6); WHITE BLOOD COUNT 9.3 K/mm3 (4.0-10.0)
[2016-10-21 10:01] LABS: INR 1.2 (0.82-1.09); PROTHROMBIN TIME (PATIENT) 13.3 SEC (9.98-11.88)
[2016-10-21 10:34] LABS: ALBUMIN 2.8 g/dl (3.4-5.0); ALK PHOS 125 U/L (45-117); ANION GAP 12 (8-16); BILIRUBIN,TOTAL 0.6 mg/dL (0.2-1.0); CALCIUM 8.4 mg/dL (8.5-10.1); CO2 25 mmol/L (21-32); CREATININE 0.6 mg/dL (0.55-1.02); GLUCOSE,RANDOM 146 mg/dL (74-106); SGOT/AST 16 U/L (15-37); SGPT/ALT 37 U/L (12-78); TOT PROT 6.7 g/dl (6.4-8.2)
[2016-10-21] MEDS: KCL 10 MEQ IVPB 100 ML IVPB SCH ×2 (12:13→13:58)
--- NOTE | 2016-10-21 13:09 | PN ---
Physical Exam: SUBJECTIVE: Patient seen and examined. She denies any chest pain, nausea or vomiting. States she had small BM, is passing more gas. OBJECTIVE: Non toxic appearing Abdomen soft, + bowel sounds. Non distended abdomen, no pain on light palpation of abdomen Potassium repleted with 2 K riders Vital Signs Period Temp Pulse Resp BP Sys/[place] Pulse Ox Last 24 Hr 98.8 F-98.9 F 75-78 18-20 101-138/45-62 100 GENERAL: The patient is awake, alert, and fully oriented, in no acute distress. HEAD: Normal with no signs of trauma. EYES: PERRL, extraocular movements intact, sclera anicteric, conjunctiva clear. No ptosis. ENT: Ears normal, nares patent, oropharynx clear without exudates, moist mucous membranes. NECK: Trachea midline, full range of motion, supple. LUNGS: Breath sounds equal, clear to auscultation bilaterally, no wheezes, no crackles, no accessory muscle use. HEART: Regular rate and rhythm, S1, S2 without murmur, rub or gallop. ABDOMEN: Soft, nontender, nondistended, normoactive bowel sounds EXTREMITIES: 2+ pulses, warm, well-perfused, no edema. NEUROLOGICAL: Normal speech, gait not observed. PSYCH: Normal mood, normal affect. SKIN: Warm, dry, normal turgor, no rashes or lesions noted Laboratory Results - last 24 hr 10/21/16 10/21/16 10/21/16 09:20 09:20 09:20 WBC 9.3 RBC 4.34 Hgb 13.4 Hct 39.3 MCV 90.6 MCHC 34.1 RDW 12.8 Plt Count 357 MPV 8.0 Neutrophils % 73.5 Lymphocytes % 17.0 Monocytes % 8.6 Eosinophils % 0.4 Basophils % 0.5 INR 1.20 H Sodium 143 Potassium 3.3 L Chloride 106 Carbon Dioxide 25 Anion Gap 12 BUN 3 L D Creatinine 0.6 D Creat Clearance w eGFR > 60 Random Glucose 146 H D Calcium 8.4 L Total Bilirubin 0.6 AST 16 ALT 37 Alkaline Phosphatase 125 H Total Protein 6.7 Albumin 2.8 L Active Medications Generic Name Dose Route Start Last Admin Trade Name Freq PRN Reason Stop Dose Admin Heparin Sodium (Porcine) 5,000 unit 10/19/16 06:00 10/21/16 06:13 Heparin - SQ Not Given TID OVIDIO Piperacillin Sod/Tazobactam Sod 50 mls @ 100 mls/hr 10/19/16 10:00 10/21/16 10: 34 Zosyn 3.375gm Ivpb (Pre-Docked) IVPB 100 mls/hr Q8H-IV OVIDIO Administration Protocol Dextrose/Sodium Chloride 1,000 mls @ 125 mls/hr 10/20/16 10:15 10/21/16 10:34 Dextrose 5%-Normal Saline+20 Meq Kcl - IV 125 mls/hr ASDIR OVIDIO Administration Potassium Chloride 100 mls @ 100 mls/hr 10/21/16 12:30 10/21/16 12:13 Potassium Chloride 10 Meq Premix Ivpb - IVPB 10/21/16 14:29 100 mls/hr Q60M OVIDIO Administration Morphine Sulfate 1 mg 10/19/16 02:15 Morphine Injection - IVPUSH Q4H PRN PAIN Ondansetron HCl 4 mg 10/19/16 02:15 Zofran Injection IVPB Q6H PRN NAUSEA ASSESSMENT/PLAN: Patient is a 61 year old female with a significant past medical history of colon polyps and hyperlipidemia. She was admitted on 10/19/2016 for acute perforated appendicitis with abscess formation and small bowel obstruction. Imagin10/19/16 CTAP: acute appendicitis with associated interloop abscess 4.7 x 3.7cm; rim-enhancing fluid 5 x 3cm in cul-de-sac; small bowel obst. 10/21/16 Abdominal Xray: dilated loops of small bowel are noted in mid abdomen, contrast seen in the non dilated colon. No change in comparison to xray 2016 GI: Acute perforated appendicitis with abscess formation and SBO Assessment/Plan: Pt states she had small BM today, denies any pain on light palpation of abdomen Repeat FUA shows no change in comparison with xray done 10/19 Surgery notes reviewed On [facility] as per ID, CT scan to be repeated on Friday to re-evaluate abscess Continue IVF, NPO with ice chips Morphine for pain, Zofran for nausea Leukocytosis resolved Monitor F.E.N. Fluids: d5 NS @ 125cc/hr while NPO Electrolytes: hypokalemia repleted Nutrition: NPO, ice chips OK Prophylaxis: Heparin SC, ambulation GI: Protonix IVPB Disposition: Continues to require inpatient hospitalization. Full Code. Visit type - Emergency Visit Emergency Visit: Yes ED Registration Date: 10/19/16 Care time: The patient presented to the Emergency Department on the above date and was hospitalized for further evaluation of their emergent condition. - New Patient This patient is new to me today: Yes Date on this admission: 11/16/16 - Critical Care Critical Care patient: No - Discharge Referral Referred to [facility] No
--- NOTE | 2016-10-21 15:26 | PN ---
Progress Note, Physician History of Present Illness: No c/o abdominal pain, N/V/D Reports soft BM today No fever/ chills WBC improved- WNL - Current Medication List Current Medications: Active Medications Heparin Sodium (Porcine) (Heparin -) 5,000 unit SQ TID OVIDIO Last Admin: 10/21/16 13:51 Dose: Not Given Piperacillin Sod/Tazobactam Sod (Zosyn 3.375gm Ivpb (Pre-Docked)) 50 mls @ 100 mls/hr IVPB Q8H-IV OVIDIO PRN Reason: Protocol Last Admin: 10/21/16 10:34 Dose: 100 mls/hr Dextrose/Sodium Chloride (Dextrose 5%-Normal Saline+20 Meq Kcl -) 1,000 mls @ 125 mls/hr IV ASDIR OVIDIO Last Admin: 10/21/16 10:34 Dose: 125 mls/hr Morphine Sulfate (Morphine Injection -) 1 mg IVPUSH Q4H PRN PRN Reason: PAIN Ondansetron HCl (Zofran Injection) 4 mg IVPB Q6H PRN PRN Reason: NAUSEA - Objective Vital Signs: Vital Signs Temperature 99.4 F 10/21/16 15:06 Pulse Rate 69 10/21/16 15:06 Respiratory Rate 18 10/21/16 15:06 Blood Pressure 131/61 10/21/16 15:06 O2 Sat by Pulse Oximetry (%) 99 10/21/16 09:00 Constitutional: Yes: No Distress Eyes: Yes: Conjunctiva Clear Cardiovascular: Yes: Regular Rate and Rhythm, S1, S2 Respiratory: Yes: CTA Bilaterally Gastrointestinal: Yes: Normal Bowel Sounds, Soft. No: Tenderness Edema: No Labs: CBC, BMP 10/21/16 09:20 10/21/16 09:20 INR, PTT INR 1.20 (0.82-1.09) H 10/21/16 09:20 Assessment/Plan Appendiceal abscess Leukocytosis- resolved Possible partial SBO Continue empiric zosyn Surgical follow up
--- NOTE | 2016-10-21 15:49 | PN ---
Progress Note (short form) - Note Progress Note: Pt states that she is feeling better, no nausea and passing a little flatus with some diarrhea. Vital Signs Period Temp Pulse Resp BP Sys/[place] Pulse Ox Last 24 Hr 98.4 F-99.4 F 69-85 18-20 101-133/45-65 99-100 PE: GEN: appears comfortable ABD: soft, non-distended, non-tender CBC, BMP 10/21/16 09:20 10/21/16 09:20 AXR- small bowel remains dilated, contrast in colon A/P: 61 yo female with perforated appendicitis with abscess formation(unable to drain) Recommend to continue npo(may have a few ice chips) If continues to improve will place on clears in the am Repeat CT scan on friday to evaluate absess for improvement/or if now abscess is drainable The patient was examined with Dr. Stanley today Continue IV abx
[2016-10-22] MEDS: PIPERACILLIN/TAZOB 3.375 GM 50 ML IVPB SCH ×3 (01:24→17:48)
[2016-10-22] MEDS: HEPARIN NA (PORCINE) 5,000 UNITS/ML 1ML VIAL SQ SCH ×3 (05:52→21:54)
[2016-10-22 08:26] LABS: BASOPHIL 1.1 % (0-2.0); EOSINOPHIL 0.8 % (0-4.5); MCH 30.6 pg (25.7-33.7); MCHC 33.9 g/dl (32.0-36.0); MEAN CELL VOLUME 90.5 fl (80-96); MEAN PLT VOLUME 8.6 fl (7.5-11.1); NEUTROPHILS 62.8 % (42.8-82.8); PLATELET COUNT 376 K/MM3 (134-434); RDW 13.3 % (11.6-15.6); WHITE BLOOD COUNT 7.6 K/mm3 (4.0-10.0)
--- NOTE | 2016-10-22 08:31 | PN ---
Progress Note (short form) - Note Progress Note: Attending Surgeon No c/o; passing flatus and having BM VSS AF abdomen-soft/flat/nontender/minimal tympany labs today pending CT scans to date reviewed w/ Dr. Wing; radiology; to repeat CT scan a/p 10/23. IMP: improving s/p ? perforated appendicitis/w/abscess formation. PLAN: Clear liquid diet; continue present tx.; f/u CT tomorrow. Tiago Stanley MD FACS
[2016-10-22 08:40] LABS: CALCIUM 8.7 mg/dL (8.5-10.1); CREATININE 0.5 mg/dL (0.55-1.02)
[2016-10-22] MEDS: PANTOPRAZOLE SODIUM 100 ML IVPB SCH (11:25)
[2016-10-22] MEDS: D5-NS + 20 MEQ KCL - 1,000 ML IV SCH ×2 (11:49→17:47)
--- NOTE | 2016-10-22 16:48 | PN ---
Physical Exam: SUBJECTIVE: Patient seen and examined. Patient states she feels well. Denies abdominal pain or discomfort Had BM today and passing gas OBJECTIVE: Abdomen soft, non distended, + bowel sounds No pain on palpation of abdomen Vital Signs Period Temp Pulse Resp BP Sys/[place] Pulse Ox Last 24 Hr 98.7 F-99.4 F 60-73 16-20 114-126/51-65 GENERAL: The patient is awake, alert, and fully oriented, in no acute distress. HEAD: Normal with no signs of trauma. EYES: PERRL, extraocular movements intact, sclera anicteric, conjunctiva clear. No ptosis. ENT: Ears normal, nares patent, oropharynx clear without exudates, moist mucous membranes. NECK: Trachea midline, full range of motion, supple. LUNGS: Breath sounds equal, clear to auscultation bilaterally, no wheezes, no crackles, no accessory muscle use. HEART: Regular rate and rhythm, S1, S2 without murmur, rub or gallop. ABDOMEN: Soft, nontender, nondistended, normoactive bowel sounds EXTREMITIES: 2+ pulses, warm, well-perfused, no edema. NEUROLOGICAL: Normal speech, gait not observed. PSYCH: Normal mood, normal affect. SKIN: Warm, dry, normal turgor, no rashes or lesions noted Laboratory Results - last 24 hr 10/22/16 10/22/16 06:30 06:30 WBC 7.6 RBC 4.06 Hgb 12.4 Hct 36.7 MCV 90.5 MCHC 33.9 RDW 13.3 Plt Count 376 MPV 8.6 Neutrophils % 62.8 Lymphocytes % 27.2 D Monocytes % 8.1 Eosinophils % 0.8 D Basophils % 1.1 Sodium 143 Potassium 3.6 Chloride 107 Carbon Dioxide 26 Anion Gap 10 BUN 4 L D Creatinine 0.5 L Random Glucose 131 H Calcium 8.7 Active Medications Generic Name Dose Route Start Last Admin Trade Name Freq PRN Reason Stop Dose Admin Heparin Sodium (Porcine) 5,000 unit 10/19/16 06:00 10/22/16 14:19 Heparin - SQ 5,000 unit TID OVIDIO Administration Piperacillin Sod/Tazobactam Sod 50 mls @ 100 mls/hr 10/19/16 10:00 10/22/16 11: 25 Zosyn 3.375gm Ivpb (Pre-Docked) IVPB 100 mls/hr Q8H-IV OVIDIO Administration Protocol Dextrose/Sodium Chloride 1,000 mls @ 125 mls/hr 10/20/16 10:15 10/22/16 11:49 Dextrose 5%-Normal Saline+20 Meq Kcl - IV 125 mls/hr ASDIR OVIDIO Administration Pantoprazole Sodium 100 mls @ 200 mls/hr 10/22/16 10:00 10/22/16 11:25 Protonix 40mg Ivpb (Pre-Docked) IVPB 200 mls/hr DAILY OVIDIO Administration Morphine Sulfate 1 mg 10/19/16 02:15 Morphine Injection - IVPUSH Q4H PRN PAIN Ondansetron HCl 4 mg 10/19/16 02:15 Zofran Injection IVPB Q6H PRN NAUSEA ASSESSMENT/PLAN: Patient is a 61 year old female with a significant past medical history of colon polyps and hyperlipidemia. She was admitted on 10/19/2016 for acute perforated appendicitis with abscess formation and small bowel obstruction. Imagin10/19/16 CTAP: acute appendicitis with associated interloop abscess 4.7 x 3.7cm; rim-enhancing fluid 5 x 3cm in cul-de-sac; small bowel obst. 10/21/16 Abdominal Xray: dilated loops of small bowel are noted in mid abdomen, contrast seen in the non dilated colon. No change in comparison to xray 10/19/2016 GI: Acute perforated appendicitis with abscess formation and SBO Assessment/Plan: IR unable to drain abscess Pt continues to improve, now on clears, with a repeat CT tomorrow to evaluate abscess for improvement vs. drainage Pt states she had another BM today, denies any pain on light palpation of abdomen + bowel sounds, passing gas On Zosyn as per ID, remains hemodynamically stable Continue IVF, now on clears as per surgery Morphine for pain, Zofran for nausea Leukocytosis resolved Monitor blood cultures negative to date F.E.N. Fluids: NS D5 20meq @ 60cc/hr Electrolytes: hypokalemia resolved Nutrition: on clears Prophylaxis: Heparin SC, ambulation GI: Protonix IVPB Disposition: Continues to require inpatient hospitalization. Full Code. Visit type - Emergency Visit Emergency Visit: Yes ED Registration Date: 10/19/16 Care time: The patient presented to the Emergency Department on the above date and was hospitalized for further evaluation of their emergent condition. - New Patient This patient is new to me today: No - Critical Care Critical Care patient: No - Discharge Referral Referred to [facility] No
[2016-10-23] MEDS: PIPERACILLIN/TAZOB 3.375 GM 50 ML IVPB SCH ×3 (01:18→17:27)
[2016-10-23] MEDS: D5-NS + 20 MEQ KCL - 1,000 ML IV SCH ×2 (05:12→17:30)
[2016-10-23] MEDS: HEPARIN NA (PORCINE) 5,000 UNITS/ML 1ML VIAL SQ SCH ×3 (05:44→23:04)
[2016-10-23 08:21] LABS: BASOPHIL 1.1 % (0-2.0); EOSINOPHIL 0.9 % (0-4.5); MCH 30.6 pg (25.7-33.7); MCHC 33.5 g/dl (32.0-36.0); MEAN CELL VOLUME 91.5 fl (80-96); MEAN PLT VOLUME 8.7 fl (7.5-11.1); NEUTROPHILS 60.8 % (42.8-82.8); PLATELET COUNT 367 K/MM3 (134-434); RDW 13.4 % (11.6-15.6); WHITE BLOOD COUNT 6.8 K/mm3 (4.0-10.0)
[2016-10-23 08:29] LABS: ALBUMIN 2.9 g/dl (3.4-5.0); ANION GAP 12 (8-16); BILIRUBIN,TOTAL 0.4 mg/dL (0.2-1.0); CO2 28 mmol/L (21-32); CREATININE 0.6 mg/dL (0.55-1.02); GLUCOSE,RANDOM 104 mg/dL (74-106); SGOT/AST 59 U/L (15-37); SGPT/ALT 63 U/L (12-78); TOT PROT 6.5 g/dl (6.4-8.2)
[2016-10-23 08:30] LABS: ALK PHOS 151 U/L (45-117)
[2016-10-23] MEDS: PANTOPRAZOLE SODIUM 100 ML IVPB SCH (10:46)
--- NOTE | 2016-10-23 12:01 | PN ---
Physical Exam: SUBJECTIVE: Patient seen and examined at bedside. Has episodes of watery diarrhea x 2 days. No nausea, vomiting. No abdominal pain. No fever, sweats, chills. OBJECTIVE: Vital Signs Period Temp Pulse Resp BP Sys/[place] Pulse Ox Last 24 Hr 97.9 F-99.2 F 61-66 18-18 115-130/60-71 98 GENERAL: The patient is awake, alert, and fully oriented, in no acute distress. HEAD: Normal with no signs of trauma. EYES: PERRL, extraocular movements intact, sclera anicteric, conjunctiva clear. No ptosis. LUNGS: Breath sounds equal, clear to auscultation bilaterally, no wheezes, no crackles, no accessory muscle use. HEART: Regular rate and rhythm, S1, S2, + murmur, no rub or gallop. ABDOMEN: Soft, nondistended, hypoactive bowel sounds,no tenderness, no guarding , no rebound EXTREMITIES: 2+ pulses, warm, well-perfused, no edema. NEUROLOGICAL: Cranial nerves II through XII grossly intact. Normal speech, gait not observed. PSYCH: Normal mood, normal affect. SKIN: Warm, dry, normal turgor, no rashes or lesions noted Laboratory Results - last 24 hr 10/23/16 10/23/16 06:00 06:00 WBC 6.8 RBC 4.10 Hgb 12.6 Hct 37.6 MCV 91.5 MCHC 33.5 RDW 13.4 Plt Count 367 MPV 8.7 Neutrophils % 60.8 Lymphocytes % 27.6 Monocytes % 9.6 Eosinophils % 0.9 Basophils % 1.1 Sodium 144 Potassium 3.5 Chloride 104 Carbon Dioxide 28 Anion Gap 12 BUN 4 L Creatinine 0.6 Creat Clearance w eGFR > 60 Random Glucose 104 D Calcium 9.0 Total Bilirubin 0.4 D AST 59 H D ALT 63 D Alkaline Phosphatase 151 H D Total Protein 6.5 Albumin 2.9 L Active Medications Generic Name Dose Route Start Last Admin Trade Name Freq PRN Reason Stop Dose Admin Heparin Sodium (Porcine) 5,000 unit 10/19/16 06:00 10/23/16 05:44 Heparin - SQ 5,000 unit TID OVIDIO Administration Piperacillin Sod/Tazobactam Sod 50 mls @ 100 mls/hr 10/19/16 10:00 10/23/16 10: 45 Zosyn 3.375gm Ivpb (Pre-Docked) IVPB 100 mls/hr Q8H-IV OVIDIO Administration Protocol Pantoprazole Sodium 100 mls @ 200 mls/hr 10/22/16 10:00 10/23/16 10:46 Protonix 40mg Ivpb (Pre-Docked) IVPB 200 mls/hr DAILY OVIDIO Administration Dextrose/Sodium Chloride 1,000 mls @ 60 mls/hr 10/22/16 16:59 10/23/16 05:12 Dextrose 5%-Normal Saline+20 Meq Kcl - IV 60 mls/hr ASDIR OVIDIO Administration Morphine Sulfate 1 mg 10/19/16 02:15 Morphine Injection - IVPUSH Q4H PRN PAIN Ondansetron HCl 4 mg 10/19/16 02:15 Zofran Injection IVPB Q6H PRN NAUSEA Imaging 10/19 CTAP: (1) acute appendicitis with associated interloop abscess 4.7 x 3.7cm ; (2) rim-enhancing fluid 5 x 3cm in cul-de-sac; (3) SBO 10/19 KUB flat: SBO ASSESSMENT/PLAN: 61 year-old female with a PMH of HLD, colon polyps, admitted for acute perforated appendicitis with abscess formation and SBO. Acute perforated appendicitis with abscess formation --afebrile, no leukocytosis, hemodynamically stable --blood cultures NGTD --CTAP done today, awaiting results; surgery and IR to confer on abscess drainage --IV fluids, clears --continue Zosyn (day #5) SBO --has been passing flatus --diarrhea x 2 days --send off c.diff, stool culture Hypokalemia --replete IV F/E/N Fluids: NS @42 Electrolytes: replete as indicated Nutrition: clears DVT prophylaxis: subq heparin, oob, ambulation Dispo: continues to require inpatient care. Full Code. Visit type - Emergency Visit Emergency Visit: Yes ED Registration Date: 10/19/16 Care time: The patient presented to the Emergency Department on the above date and was hospitalized for further evaluation of their emergent condition. - New Patient This patient is new to me today: No - Critical Care Critical Care patient: No
--- NOTE | 2016-10-23 16:53 | PN ---
Progress Note (short form) - Note Progress Note: Attending Surgeon No c/o; passing flatus and liquid BM; tolerating clear liquid diet. VSS AF abdomen is soft/flat and slightly tympanitic; no tenderness; o/w negative. F/U Ct scan reviewed. IMP:perforated appendicitis w/abscess formation x2 PLAN:Will d/w Dr. Wing re IR drainage; will advance diet. Tiago Stanley MD FACS
[2016-10-24] MEDS: PIPERACILLIN/TAZOB 3.375 GM 50 ML IVPB SCH ×3 (02:20→17:44)
[2016-10-24] MEDS: HEPARIN NA (PORCINE) 5,000 UNITS/ML 1ML VIAL SQ SCH ×3 (06:50→22:32)
[2016-10-24 08:08] LABS: BASOPHIL 0.8 % (0-2.0); EOSINOPHIL 1.3 % (0-4.5); MCH 30.4 pg (25.7-33.7); MCHC 33.6 g/dl (32.0-36.0); MEAN CELL VOLUME 90.6 fl (80-96); MEAN PLT VOLUME 8.5 fl (7.5-11.1); PLATELET COUNT 350 K/MM3 (134-434); RDW 12.9 % (11.6-15.6); WHITE BLOOD COUNT 6.2 K/mm3 (4.0-10.0)
[2016-10-24 08:57] LABS: ALBUMIN 2.7 g/dl (3.4-5.0); ALK PHOS 135 U/L (45-117); ANION GAP 10 (8-16); BILIRUBIN,TOTAL 0.4 mg/dL (0.2-1.0); CALCIUM 8.7 mg/dL (8.5-10.1); CO2 28 mmol/L (21-32); CREATININE 0.6 mg/dL (0.55-1.02); GLUCOSE,RANDOM 110 mg/dL (74-106); MAGNESIUM 1.8 mg/dL (1.8-2.4); PHOSPHOROUS 3.8 mg/dL (2.5-4.9); SGOT/AST 36 U/L (15-37); SGPT/ALT 57 U/L (12-78); TOT PROT 6.1 g/dl (6.4-8.2)
--- NOTE | 2016-10-24 09:07 | PN ---
Physical Exam: SUBJECTIVE: Patient seen and examined. No complaints other than hungry from being kept NPO. OBJECTIVE: Vital Signs Period Temp Pulse Resp BP Sys/[place] Pulse Ox Last 24 Hr 98.1 F-98.8 F 58-67 14-20 103-123/34-59 97 GENERAL: The patient is awake, alert, and fully oriented, in no acute distress. HEAD: Normal with no signs of trauma. EYES: PERRL, extraocular movements intact, sclera anicteric, conjunctiva clear. No ptosis. LUNGS: Breath sounds equal, clear to auscultation bilaterally, no wheezes, no crackles, no accessory muscle use. HEART: Regular rate and rhythm, S1, S2, + murmur, no rub or gallop. ABDOMEN: Soft, nondistended, hypoactive bowel sounds,no tenderness, no guarding , no rebound EXTREMITIES: 2+ pulses, warm, well-perfused, no edema. NEUROLOGICAL: Cranial nerves II through XII grossly intact. Normal speech, gait not observed. PSYCH: Normal mood, normal affect. SKIN: Warm, dry, normal turgor, no rashes or lesions noted Laboratory Results - last 24 hr 10/24/16 06:30 WBC 6.2 RBC 3.94 Hgb 12.0 Hct 35.7 MCV 90.6 MCHC 33.6 RDW 12.9 Plt Count 350 MPV 8.5 Neutrophils % 59.0 Lymphocytes % 28.5 Monocytes % 10.4 H Eosinophils % 1.3 Basophils % 0.8 Active Medications Generic Name Dose Route Start Last Admin Trade Name Freq PRN Reason Stop Dose Admin Heparin Sodium (Porcine) 5,000 unit 10/19/16 06:00 10/24/16 06:50 Heparin - SQ Not Given TID OVIDIO Piperacillin Sod/Tazobactam Sod 50 mls @ 100 mls/hr 10/19/16 10:00 10/24/16 02: 20 Zosyn 3.375gm Ivpb (Pre-Docked) IVPB 100 mls/hr Q8H-IV OVIDIO Administration Protocol Pantoprazole Sodium 100 mls @ 200 mls/hr 10/22/16 10:00 10/23/16 10:46 Protonix 40mg Ivpb (Pre-Docked) IVPB 200 mls/hr DAILY OVIDIO Administration Dextrose/Sodium Chloride 1,000 mls @ 60 mls/hr 10/22/16 16:59 10/23/16 17:30 Dextrose 5%-Normal Saline+20 Meq Kcl - IV Not Given ASDIR OVIDIO Morphine Sulfate 1 mg 10/19/16 02:15 Morphine Injection - IVPUSH Q4H PRN PAIN Ondansetron HCl 4 mg 10/19/16 02:15 Zofran Injection IVPB Q6H PRN NAUSEA Imaging 10/19 CTAP: (1) acute appendicitis with associated interloop abscess 4.7 x 3.7cm ; (2) rim-enhancing fluid 5 x 3cm in cul-de-sac; (3) SBO 10/19 KUB flat: SBO 10/23 CTAP: (1) perforated appendicitis; (2) 5.9 x 5.6 abscess central upper pelvis resulting in partial SBO, without significant change; (3) 5.3 x 2.6cm abscess anterior to rectum in deep pelvis; (4) review of CT scans over past 2 years shows 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 Acute perforated appendicitis with abscess formation --afebrile, no leukocytosis, hemodynamically stable --blood cultures negative --decision today not to proceed with IR drainage; will discuss plan going forward with Dr. Stanley (surgery) and Dr. Lees (ID) --continue Zosyn (day #6) SBO --has been passing flatus, watery BMs --c.diff negative F/E/N Fluids: PO intake adequate Electrolytes: replete as indicated Nutrition: regular diet DVT prophylaxis: resume subq heparin; SCDs, oob, ambulation Dispo: continues to require inpatient care. Full Code. Visit type - Emergency Visit Emergency Visit: Yes ED Registration Date: 10/19/16 Care time: The patient presented to the Emergency Department on the above date and was hospitalized for further evaluation of their emergent condition. - New Patient This patient is new to me today: No - Critical Care Critical Care patient: No
[2016-10-24] MEDS: PANTOPRAZOLE SODIUM 100 ML IVPB SCH (09:08)
--- NOTE | 2016-10-24 09:32 | PN ---
Progress Note (short form) - Note Progress Note: Attending Surgeon No c/o; having loose BM's and flatus VSS AF abdomen-soft; flat; non tender WBC normal IMP: perforated appendicitis w/ abscess PLAN: Continue present tx; IRD today.
[2016-10-25] MEDS: PIPERACILLIN/TAZOB 3.375 GM 50 ML IVPB SCH ×2 (02:26→10:48)
[2016-10-25] MEDS: HEPARIN NA (PORCINE) 5,000 UNITS/ML 1ML VIAL SQ SCH ×2 (06:36→14:45)
[2016-10-25 08:36] LABS: BASOPHIL 0.8 % (0-2.0); EOSINOPHIL 1.9 % (0-4.5); MCH 30.6 pg (25.7-33.7); MCHC 33.3 g/dl (32.0-36.0); MEAN CELL VOLUME 91.9 fl (80-96); MEAN PLT VOLUME 8.9 fl (7.5-11.1); NEUTROPHILS 61.4 % (42.8-82.8); PLATELET COUNT 352 K/MM3 (134-434); RDW 13.1 % (11.6-15.6); WHITE BLOOD COUNT 6.5 K/mm3 (4.0-10.0)
--- NOTE | 2016-10-25 08:42 | PN ---
[id number] BM's x 2 yesterday. Vital Signs Period Temp Pulse Resp BP Sys/[place] Pulse Ox Last 24 Hr 97.5 F-99.7 F 62-68 18-20 110-126/54-74 97-97 PE: GEN: appears comfortable ABD: soft, non-distended, non-tender CBC, BMP 10/25/16 06:05 A/P: 61 yo female with pelvic abscess/right paramedian to central collection with thickened appendix The CT scans were reviewed with radiology and the collections aren't accessible to drainage At this time, the patient remains clinically stable with improved leukocytosis, afebrile with a benign abdomen Id for follow-up regarding antibiotics Continue current diet Ordered sed rate/crp <Nikki Jung - Last Filed: 10/25/16 09:01> - Note Progress Note: Attending Surgeon As above; patient will be sent home w/PO antibiotics and have OPD f/u 11/05/16; she was instructed on reasons to return to the hospital prior to that; aki e d/ w the hospitalist; patient will need OPD f/u and interval appendectomy. As patient is clinically stable and not septic do not believe operative intervention at this time is indicated; d/w patient. <Tiago Stanley - Last Filed: 10/25/16 10:27>
[2016-10-25 08:50] LABS: ALBUMIN 2.6 g/dl (3.4-5.0); ANION GAP 8 (8-16); CALCIUM 8.7 mg/dL (8.5-10.1); CO2 28 mmol/L (21-32); GLUCOSE,RANDOM 107 mg/dL (74-106); MAGNESIUM 1.9 mg/dL (1.8-2.4)
[2016-10-25 08:55] LABS: ALK PHOS 144 U/L (45-117); BILIRUBIN,TOTAL 0.5 mg/dL (0.2-1.0); CREATININE 0.7 mg/dL (0.55-1.02); SGOT/AST 39 U/L (15-37); SGPT/ALT 58 U/L (12-78); TOT PROT 6.4 g/dl (6.4-8.2)
[2016-10-25] MEDS: PANTOPRAZOLE SODIUM 100 ML IVPB SCH (09:59)
[2016-10-25 15:09] VITALS: BP 125/75; PULSE 89; TEMP 98.2
== END 2016-10-25 15:42 | disposition home or self-care (01) | DRG 241 ==
LOC: JER 15:59 → JERBED 10-19 02:34 → J8W 10-19 03:49
PROVIDERS: ADMIT Internal Medicine; ATTEND Nurse Practitioner Acute Care
DX: K29.70 Gastritis, unspecified, without bleeding (principal); R10.13 Epigastric pain; E78.5 Hyperlipidemia, unspecified
CPT/HCPCS: 36415; 74000-TC; 74020-TC; 74177-TC; 80048; 80053; 81003; 81015; 83605; 83690; 83735; 84100; 85025; 85610; 85651; 86140; 87040; 87045; 87046; 87324; 87449; 97116-GP; 97161-GP; 99284-25; J1644; Q9967

== ENCOUNTER 2016-10-26 22:21 | Emergency (ER) | payer OTHER ==
[2016-10-26 22:28] VITALS: BMI 27.8
[2016-10-26] MEDS ORDERED: ACETAMINOPHEN 1000 MG/100 ML VIAL (NON FORMULARY) IVPB ONE (22:54)
[2016-10-26] MEDS ORDERED: PANTOPRAZOLE SODIUM 40 MG in SODIUM CHLORIDE 100 ML IVPB ONE (22:54)
[2016-10-26] MEDS ORDERED: FAMOTIDINE 20 MG/50 ML IVPB 50 ML IVPB ONE ×2 (22:54→23:54)
[2016-10-26] MEDS ORDERED: ONDANSETRON 4 MG/2 ML VIAL IVPB ONE (22:54)
[2016-10-26] MEDS ORDERED: SODIUM CHLORIDE 1,000 ML IV STA (22:54)
[2016-10-26 23:28] LABS: BASOPHIL 0.3 % (0-2.0); EOSINOPHIL 0.3 % (0-4.5); MCH 30.5 pg (25.7-33.7); MEAN CELL VOLUME 89.8 fl (80-96); MEAN PLT VOLUME 8.5 fl (7.5-11.1); NEUTROPHILS 84.4 % (42.8-82.8); PLATELET COUNT 414 K/MM3 (134-434); RDW 13.6 % (11.6-15.6); WHITE BLOOD COUNT 12.4 K/mm3 (4.0-10.0)
[2016-10-26 23:30] LABS: URINE APPEARANCE CLEAR; URINE BILIRUBIN NEGATIVE (NEGATIVE); URINE COLOR AMBER; URINE GLUCOSE (UA) NEGATIVE (NEGATIVE); URINE KETONE TRACE (NEGATIVE); URINE NITRITE NEGATIVE (NEGATIVE); URINE UROBILINOGEN NEGATIVE E.U./dl (0.2-1.0)
[2016-10-26 23:34] LABS: URINE BLOOD 1+ (NEGATIVE); URINE LEUK ESTERASE TRACE (NEGATIVE); URINE PROTEIN 1+ (NEGATIVE)
[2016-10-26 23:36] LABS: CALCIUM OXALATE CRYSTALS RARE /hpf (NONE SEEN); URINE HYALINE CAST 12 /lpf; URINE MUCUS MANY; URINE RBC 6 /hpf (0-3); URINE WBC 4 /hpf (3-5)
[2016-10-26] MEDS ORDERED: PANTOPRAZOLE SODIUM 100 ML IVPB ONE (23:52)
[2016-10-26] MEDS ORDERED: ACETAMINOPHEN INJECTION 100 ML IVPB ONE (23:52)
[2016-10-26] MEDS ORDERED: ONDANSETRON 4 MG/2 ML VIAL ONE (23:53)
[2016-10-26 23:55] LABS: ALBUMIN 3.4 g/dl (3.4-5.0); ANION GAP 14 (8-16); BILIRUBIN,TOTAL 0.6 mg/dL (0.2-1.0); CALCIUM 10.1 mg/dL (8.5-10.1); CO2 27 mmol/L (21-32); CREATININE 0.8 mg/dL (0.55-1.02); GLUCOSE,RANDOM 151 mg/dL (74-106); SGOT/AST 34 U/L (15-37); SGPT/ALT 61 U/L (12-78); TOT PROT 7.9 g/dl (6.4-8.2)
--- NOTE | 2016-10-26 23:55 | PDOC ---
History of Present Illness - General History Source: Patient Exam Limitations: No Limitations - History of Present Illness Initial Comments: 10/26/16 23:56 The patient is 61 year old female with history of hyperlipidemia, recent hospitalization for perforated appendicitis, who presents to the ED complaining of multiple episodes of nonbloody nonbilious vomiting with associated nausea and burning epigastric pain that began this morning. The patient was discharged from the hospital yesterday. Surgical intervention for her appendicitis was deferred at this time and the patient was started on antibiotics. She states she was feeling well yesterday and was able to take her antibiotics, but was not able to tolerate PO including home meds today. The patient denies fever or chills. She denies constipation or diarrhea. She denies any lower abdominal pain. She denies chest pain or shortness of breath. PCP is out of network. Nonsmoker. Denies alcohol abuse. <Vickie Fontaine - Last Filed: 10/27/16 00:18> - General History Source: Patient, Old Records Exam Limitations: No Limitations <Gabe Vera - Last Filed: 10/27/16 00:51> - General Chief Complaint: Pain Stated Complaint: VOMITING/ABD PAIN Time Seen by Provider: 10/26/16 22:49 Past History <Vickie Fontaine - Last Filed: 10/27/16 00:18> - Past Medical History Anemia: No Asthma: No Cancer: No Cardiac Disorders: No CVA: No COPD: No CHF: No Dementia: No Diabetes: No GI Disorders: Yes (HEMORRHOIDS, POLYPS) Disorders: No HTN: No Hypercholesterolemia: Yes Liver Disease: No Seizures: No Thyroid Disease: No - Surgical History Abdominal Surgery: No Appendectomy: No Cardiac Surgery: No Cholecystectomy: No Lung Surgery: No Neurologic Surgery: No Orthopedic Surgery: No - Psycho/Social/Smoking Cessation Hx Suicidal Ideation: No Smoking History: Never smoked Have you smoked in the past 12 months: No Hx Alcohol Use: No Drug/Substance Use Hx: No Substance Use Type: None Hx Substance Use Treatment: No <Gabe Vera - Last Filed: 10/27/16 00:51> - Past Medical History Allergies/Adverse Reactions: Allergies Allergy/AdvReac Type Severity Reaction Status Date / Time No Known Allergies Allergy Verified 10/26/16 22:27 Home Medications: Ambulatory Orders Ciprofloxacin HCl [Cipro] 500 mg PO BID #20 tablet 10/25/16 Metronidazole 500 mg PO TID #30 tablet 10/25/16 Acetaminophen [Tylenol] 650 mg PO Q4H PRN #20 tablet 10/27/16 Ondansetron HCl [Zofran] 4 mg PO Q6H PRN #20 tablet 10/27/16 Pantoprazole Sodium [Protonix] 40 mg PO DAILY #14 tablet. 10/27/16 Ranitidine HCl [Zantac] 150 mg PO BID PRN #14 tablet 10/27/16 Review of Systems - Review of Systems Able to Perform ROS?: Yes Comments:: 10/26/16 23:59 GENERAL/CONSTITUTIONAL: No fever or chills. No weakness. HEAD, EYES, EARS, NOSE AND THROAT: No change in vision. No ear pain or discharge. No sore throat. CARDIOVASCULAR: No chest pain or shortness of breath. RESPIRATORY: No cough, wheezing, or hemoptysis. GASTROINTESTINAL: +Nausea, NBNB vomiting x 5, epigastric pain. No diarrhea or constipation. GENITOURINARY: No dysuria, frequency, or change in urination. MUSCULOSKELETAL: No joint or muscle swelling or pain. No neck or back pain. SKIN: No rash NEUROLOGIC: No headache, vertigo, loss of consciousness, or change in strength/ sensation. ENDOCRINE: No increased thirst. No abnormal weight change. HEMATOLOGIC/LYMPHATIC: No anemia, easy bleeding, or history of blood clots. ALLERGIC/IMMUNOLOGIC: No hives or skin allergy. <Vickie Fontaine - Last Filed: 10/27/16 00:18> *Physical Exam - Vital Signs Last Vital Signs Temp Pulse Resp BP Pulse Ox 98 F 81 18 106/58 97 10/26/16 22:23 10/26/16 22:23 10/26/16 22:23 10/26/16 22:23 10/26/16 22:23 - Physical Exam Comments: 10/27/16 00:00 GENERAL: Awake, alert, and fully oriented, in no acute distress HEAD: No signs of trauma EYES: PERRLA, EOMI, sclera anicteric, conjunctiva clear ENT: Auricles normal inspection, hearing grossly normal, nares patent, oropharynx clear without exudates.Dry mucous membranes. NECK: Normal ROM, supple, no lymphadenopathy, JVD, or masses LUNGS: Breath sounds equal, clear to auscultation bilaterally. No wheezes, and no crackles HEART: Regular rate and rhythm, normal S1 and S2, no murmurs, rubs or gallops ABDOMEN: +Tenderness to the epigastrium. Soft, normoactive bowel sounds. No guarding, no rebound. No masses EXTREMITIES: Normal range of motion, no edema. No clubbing or cyanosis. No cords, erythema, or tenderness NEUROLOGICAL: Cranial nerves II through XII grossly intact. Normal speech, normal gait SKIN: Warm, Dry, normal turgor, no rashes or lesions noted. <Vickie Fontaine - Last Filed: 10/27/16 00:18> - Vital Signs Last Vital Signs Temp Pulse Resp BP Pulse Ox 98 F 81 18 106/58 97 10/26/16 22:23 10/26/16 22:23 10/26/16 22:23 10/26/16 22:23 10/26/16 22:23 <Gabe Vera - Last Filed: 10/27/16 00:51> ED Treatment Course - LABORATORY CBC & Chemistry Diagram: 10/26/16 23:15 10/26/16 23:15 - ADDITIONAL ORDERS Additional order review: Laboratory Results 10/26/16 23:15 Urine Color Stacie Urine Appearance Clear Urine pH 5.0 D Ur Specific [place] 1.019 Urine Protein 1+ H Urine Glucose (UA) Negative Urine Ketones Trace H Urine Blood 1+ H Urine Nitrite Negative Urine Bilirubin Negative Urine Urobilinogen Negative Ur Leukocyte Esterase Trace H Urine RBC 6 Urine WBC 4 Ur Epithelial Cells Rare Calcium Oxalate Crystal Rare Hyaline Casts 12 Urine Mucus Many 10/26/16 23:15 RBC 4.45 MCV 89.8 MCHC 34.0 RDW 13.6 MPV 8.5 Neutrophils % 84.4 H D Lymphocytes % 8.5 D Monocytes % 6.5 Eosinophils % 0.3 D Basophils % 0.3 - Medications Given in the ED: ED Medications Discontinued Medications Generic Name Dose Route Start Last Admin Trade Name Freq PRN Reason Stop Dose Admin Sodium Chloride 1,000 mls @ 1,000 mls/hr 10/26/16 22:54 10/26/16 23:49 Normal Saline - IV 10/26/16 23:53 1,000 mls/hr ASDIR STA Administration <Vickie Fontaine - Last Filed: 10/27/16 00:18> - LABORATORY CBC & Chemistry Diagram: 10/26/16 23:15 10/26/16 23:15 - ADDITIONAL ORDERS Additional order review: Laboratory Results 10/26/16 23:15 Urine Color Stacie Urine Appearance Clear Urine pH 5.0 D Ur Specific [place] 1.019 Urine Protein 1+ H Urine Glucose (UA) Negative Urine Ketones Trace H Urine Blood 1+ H Urine Nitrite Negative Urine Bilirubin Negative Urine Urobilinogen Negative Ur Leukocyte Esterase Trace H Urine RBC 6 Urine WBC 4 Ur Epithelial Cells Rare Calcium Oxalate Crystal Rare Hyaline Casts 12 Urine Mucus Many 10/26/16 23:15 RBC 4.45 MCV 89.8 MCHC 34.0 RDW 13.6 MPV 8.5 Neutrophils % 84.4 H D Lymphocytes % 8.5 D Monocytes % 6.5 Eosinophils % 0.3 D Basophils % 0.3 - Medications Given in the ED: ED Medications Discontinued Medications Generic Name Dose Route Start Last Admin Trade Name Freq PRN Reason Stop Dose Admin Sodium Chloride 1,000 mls @ 1,000 mls/hr 10/26/16 22:54 10/26/16 23:49 Normal Saline - IV 10/26/16 23:53 1,000 mls/hr ASDIR STA Administration <Gabe Vera - Last Filed: 10/27/16 00:51> Medical Decision Making - Medical Decision Making 10/27/16 00:18 Case discussed with surgeon, Dr. Stanley. <Vickie Fontaine - Last Filed: 10/27/16 00:18> - Medical Decision Making 10/26/16 23:55 A portion of this note was documented by scribe services under my direction. I have reviewed the details of the note, within reason, and agree with the documentation with the following case summary and management plan written by me. Patient treated in the ED. Nursing notes are reviewed and incorporated into the medical decision-making. Vital signs reviewed. Peripheral IV access obtained by the nurse, laboratory studies are drawn and sent, reviewed and interpreted by myself. Vital Signs Temp Pulse Resp BP Pulse Ox 98 F 81 18 106/58 97 10/26/16 22:23 10/26/16 22:23 10/26/16 22:23 10/26/16 22:23 10/26/16 22:23 61-year-old female with past medical history of hyperlipidemia presents to the immersed department for nausea, vomiting and epigastric pain. The patient was discharged yesterday for several days admission for perforated appendicitis. The patient reports that she has had no surgical intervention was placed on antibiotics. When she was discharged yesterday, the patient was able tolerate her meds. However, today, the patient reported having multiple episodes of vomiting. Denies diarrhea or fevers. Start develop epigastric burning sensation. Patient has known history of perforated appendicitis. She is no tenderness in her lower abdomen. I suspect that the epigastric pain is secondary to her vomiting. We'll obtain labs, trial medications and antibiotics. Reassess. If symptoms improve, consider discharge with additional medications. 10/27/16 00:45 CBC, BMP 10/26/16 23:15 10/26/16 23:15 CMP Sodium 140 mmol/L (136-145) 10/26/16 23:15 Potassium 3.3 mmol/L (3.5-5.1) L 10/26/16 23:15 Chloride 99 mmol/L (98-107) 10/26/16 23:15 Carbon Dioxide 27 mmol/L (21-32) 10/26/16 23:15 Anion Gap 14 (8-16) 10/26/16 23:15 BUN 9 mg/dL (7-18) D 10/26/16 23:15 Creatinine 0.8 mg/dL (0.55-1.02) 10/26/16 23:15 Creat Clearance w eGFR > 60 (>60) 10/26/16 23:15 Random Glucose 151 mg/dL (74-106) H D 10/26/16 23:15 Calcium 10.1 mg/dL (8.5-10.1) 10/26/16 23:15 Total Bilirubin 0.6 mg/dL (0.2-1.0) 10/26/16 23:15 AST 34 U/L (15-37) 10/26/16 23:15 ALT 61 U/L (12-78) 10/26/16 23:15 Alkaline Phosphatase 152 U/L (45-117) H 10/26/16 23:15 Total Protein 7.9 g/dl (6.4-8.2) D 10/26/16 23:15 Albumin 3.4 g/dl (3.4-5.0) D 10/26/16 23:15 Lipase 386 U/L (73-393) 10/26/16 23:15 Urine Test Results Urine Color Stacie 10/26/16 23:15 Urine Appearance Clear 10/26/16 23:15 Urine pH 5.0 (5.0-8.0) D 10/26/16 23:15 Ur Specific [place] 1.019 (1.001-1.035) 10/26/16 23:15 Urine Protein 1+ (NEGATIVE) H 10/26/16 23:15 Urine Glucose (UA) Negative (NEGATIVE) 10/26/16 23:15 Urine Ketones Trace (NEGATIVE) H 10/26/16 23:15 Urine Blood 1+ (NEGATIVE) H 10/26/16 23:15 Urine Nitrite Negative (NEGATIVE) 10/26/16 23:15 Urine Bilirubin Negative (NEGATIVE) 10/26/16 23:15 Ur Leukocyte Esterase Trace (NEGATIVE) H 10/26/16 23:15 Urine RBC 6 /hpf (0-3) 10/26/16 23:15 Urine WBC 4 /hpf (3-5) 10/26/16 23:15 Ur Epithelial Cells Rare /hpf (FEW) 10/26/16 23:15 Urine Mucus Many 10/26/16 23:15 Patient reports feeling better after the medications. It seems that the patient was having epigastric pain after taking cipro and flagyl. I had discussed the case with Dr. Stanley. Will stop the cipro and flagyl. Dr. Stanley will follow up with the patient as an outpatient. Discharge Diagnosis: gastritis. I discussed the physical exam findings, ancillary test results and final diagnoses with the patient. I answered all of the patient's questions. The patient was satisfied with the care received and felt comfortable with the discharge plan and treatment plan. The patient will call their primary care physician within 24 hours to arrange follow-up and will return to the Emergency Department with any new, persistant or worsening symptoms. <Gabe Vera - Last Filed: 10/27/16 00:51> *DC/Admit/Observation/Transfer - Attestations Scribe Attestion: 10/27/16 00:00 Documentation prepared by Vickie Fontaine, acting as senior medical writer for Gabe Vera MD. <Vickie Fontaine - Last Filed: 10/27/16 00:18> - Discharge Dispostion Admit: No <Gabe Vera - Last Filed: 10/27/16 00:51> Diagnosis at time of Disposition: Nausea & vomiting Qualifiers: Vomiting type: unspecified Vomiting Intractability: non-intractable Qualified Code(s): R11.2 - Nausea with vomiting, unspecified - Discharge Dispostion Disposition: HOME Condition at time of disposition: Improved - Prescriptions Prescriptions: Pantoprazole Sodium [Protonix] 40 mg PO DAILY #14 tablet. Acetaminophen [Tylenol] 650 mg PO Q4H PRN #20 tablet PRN Reason: Fever/Pain Ranitidine HCl [Zantac] 150 mg PO BID PRN #14 tablet PRN Reason: Abdominal Pain Ondansetron HCl [Zofran] 4 mg PO Q6H PRN #20 tablet PRN Reason: Nausea - Referrals Referrals: Kierra Srivastava MD [Primary Care Provider] - Tiago Stanley MD [Staff Physician] - - Patient Instructions Printed Discharge Instructions: DI for Vomiting -- Adult, DI for Gastritis Additional Instructions: Please take the medications as prescribed. Stop taking the antibiotics (at the request of Dr. Stanley) Dr. Stanley will reach out to you. Follow up with him.
[2016-10-26 23:56] LABS: ALK PHOS 152 U/L (45-117)
[2016-10-27] MEDS ORDERED: POTASSIUM CHLORIDE TABS 20 MEQ TABLET.ER (FP) PO ONE ×2 (00:09→01:27)
[2016-10-27 01:38] VITALS: BP 113/58; PULSE 64; TEMP 98.1
== END 2016-10-27 01:37 | disposition home or self-care (01) ==
LOC: JER 22:21
PROC: 3E033NZ Introduction of Analgesics, Hypnotics, Sedatives into Peripheral Vein, Percutaneous Approach (ICD-10-PCS; principal; 2016-10-26)
PROC: 3E033GC Introduction of Other Therapeutic Substance into Peripheral Vein, Percutaneous Approach (ICD-10-PCS; 2016-10-26)
PROC: 3E0337Z Introduction of Electrolytic and Water Balance Substance into Peripheral Vein, Percutaneous Approach (ICD-10-PCS; 2016-10-26)
DX: R11.2 Nausea with vomiting, unspecified (principal)
CPT/HCPCS: 36415; 80053; 81003; 81015; 83690; 85025; 96361; 96365; 96368; 96375; 99282-25

== ENCOUNTER 2016-10-30 17:02 | Inpatient (IN) | payer OTHER ==
[2016-10-30] MEDS ORDERED: FAMOTIDINE 20 MG/50 ML IVPB 50 ML IVPB ONE ×2 (17:15→17:33)
[2016-10-30] MEDS ORDERED: ACETAMINOPHEN 1000 MG/100 ML VIAL (NON FORMULARY) IVPB ONE (17:15)
[2016-10-30] MEDS ORDERED: SODIUM CHLORIDE 1,000 ML IV STA (17:15)
[2016-10-30] MEDS ORDERED: ONDANSETRON 4 MG/2 ML VIAL IVPB ONE (17:15)
[2016-10-30] MEDS ORDERED: ONDANSETRON 4 MG/2 ML VIAL ONE (17:33)
[2016-10-30] MEDS ORDERED: ACETAMINOPHEN INJECTION 100 ML IVPB ONE ×2 (17:33→18:09)
--- NOTE | 2016-10-30 17:42 | PDOC ---
History of Present Illness - General History Source: Patient, Old Records Exam Limitations: No Limitations - History of Present Illness Initial Comments: 10/30/16 17:44 The patient is a 61 year old female brought via EMS and presenting with family, with a significant past medical history of hyperlipidemia, recent hospitalization for perforated appendicitis, who presents to the emergency department with abdominal pain, nausea, vomit and diarrhea for the past 3 days. She describes her abdominal pain as ranging from moderate to severe, without radiation or modifying factors. She describes her vomit as nonbilious and nonbloody. She describes her diarrhea as nonbloody. The patient was seen in the ED on 10/26/2016 for the same symptoms and was diagnosed with gastritis and discharged home after improvement of symptoms. The patient was previously hospitalized for a 6 day stay from 10/19/2016 to 10/25/2016 for a perforated appendicitis. The patient reports had no surgical intervention was placed on antibiotics. The patient denies chest pain, shortness of breath, headache and dizziness. Denies fever, chills and constipation. Denies dysuria, frequency, urgency and hematuria. Allergies: None Past surgical history: None reported Social history: No alcohol, tobacco or drug use reported <Randy Winn - Last Filed: 10/30/16 19:37> - General History Source: Patient, Old Records Exam Limitations: No Limitations <Gabe Vera - Last Filed: 10/30/16 19:50> - General Chief Complaint: Pain, Acute Stated Complaint: LOWER ABD PAIN Time Seen by Provider: 10/30/16 17:13 Past History <Randy Winn - Last Filed: 10/30/16 19:37> - Past Medical History Anemia: No Asthma: No Cancer: No Cardiac Disorders: No CVA: No COPD: No CHF: No Dementia: No Diabetes: No GI Disorders: Yes (HEMORRHOIDS, POLYPS) Disorders: No HTN: No Hypercholesterolemia: Yes Liver Disease: No Seizures: No Thyroid Disease: No - Surgical History Abdominal Surgery: No Appendectomy: No Cardiac Surgery: No Cholecystectomy: No Lung Surgery: No Neurologic Surgery: No Orthopedic Surgery: No - Psycho/Social/Smoking Cessation Hx Anxiety: No Suicidal Ideation: No Smoking History: Never smoked Have you smoked in the past 12 months: No Information on smoking cessation initiated: No Hx Alcohol Use: No Drug/Substance Use Hx: No Substance Use Type: None Hx Substance Use Treatment: No <Gabe Vera - Last Filed: 10/30/16 19:50> - Past Medical History Allergies/Adverse Reactions: Allergies Allergy/AdvReac Type Severity Reaction Status Date / Time No Known Allergies Allergy Verified 10/26/16 22:27 Home Medications: Ambulatory Orders Acetaminophen [Tylenol] 325 mg PO QID 10/30/16 Ondansetron [Zuplenz] 4 mg PO QID 10/30/16 Pantoprazole Sodium 40 mg PO DAILY 10/30/16 Ranitidine [Zantac -] 150 mg PO BID 10/30/16 Review of Systems - Review of Systems Able to Perform ROS?: Yes Comments:: 10/30/16 17:44 GENERAL/CONSTITUTIONAL: No fever or chills. No weakness. HEAD, EYES, EARS, NOSE AND THROAT: No change in vision. No ear pain or discharge. No sore throat. CARDIOVASCULAR: No chest pain or shortness of breath RESPIRATORY: No cough, wheezing, or hemoptysis. GASTROINTESTINAL: +Abdominal pain, nausea, vomiting, diarrhea. No constipation. GENITOURINARY: No dysuria, frequency, or change in urination. MUSCULOSKELETAL: No joint or muscle swelling or pain. No neck or back pain. SKIN: No rash NEUROLOGIC: No headache, vertigo, loss of consciousness, or change in strength/ sensation. ENDOCRINE: No increased thirst. No abnormal weight change HEMATOLOGIC/LYMPHATIC: No anemia, easy bleeding, or history of blood clots. ALLERGIC/IMMUNOLOGIC: No hives or skin allergy. <Randy Winn - Last Filed: 10/30/16 19:37> *Physical Exam - Vital Signs Last Vital Signs Temp Pulse Resp BP Pulse Ox 98 F 72 20 97/57 100 10/30/16 17:07 10/30/16 17:07 10/30/16 17:07 10/30/16 17:07 10/30/16 17:07 - Physical Exam Comments: 10/30/16 17:44 GENERAL: Awake, alert, and fully oriented, in no acute distress HEAD: No signs of trauma, normocephalic, atraumatic EYES: PERRLA, EOMI, sclera anicteric, conjunctiva clear ENT: Auricles normal inspection, hearing grossly normal, nares patent, oropharynx clear without exudates. +Dry Mucous membranes. NECK: Normal ROM, supple, no lymphadenopathy, JVD, or masses LUNGS: No distress, speaks full sentences, clear to auscultation bilaterally HEART: Regular rate and rhythm, normal S1 and S2, no murmurs, rubs or gallops, peripheral pulses normal and equal bilaterally. ABDOMEN: +Epigastic and abdominal pain. Soft, normoactive bowel sounds. No guarding, no rebound. No masses EXTREMITIES: Normal inspection, Normal range of motion, no edema. No clubbing or cyanosis. NEUROLOGICAL: Cranial nerves II through XII grossly intact. Normal speech, normal gait, no focal sensorimotor deficits SKIN: Warm, Dry, normal turgor, no rashes or lesions noted. <Randy Winn - Last Filed: 10/30/16 19:37> - Vital Signs Last Vital Signs Temp Pulse Resp BP Pulse Ox 98 F 72 20 97/57 100 10/30/16 17:07 10/30/16 17:07 10/30/16 17:07 10/30/16 17:07 10/30/16 17:07 <Gabe Vera - Last Filed: 10/30/16 19:50> Heart Score/ECG Review #1 ECG reviewed & interpreted by me at: 18:00 10/30/16 18:03 NSR 76, left axis deviation, TWI III, q wave III, TWI V2-V4, no std/foreign, QTC 443 msec <Gabe Vera - Last Filed: 10/30/16 19:50> ED Treatment Course - LABORATORY CBC & Chemistry Diagram: 10/30/16 17:30 10/30/16 17:30 - RADIOLOGY Radiograph Interpretation: 10/30/16 19:35 CT Abdomen and pelvis with contrast Reviewed by: Dr. Dario Moore Impression: In comparison to a prior CT exam of 10/23/2016 note is again made of evidence of perforated appendicitis. Small bowel obstruction is noted which is probably mildly increased. Several pelvic abscesses are seen which appear decreased in size. - Medications Given in the ED: ED Medications Discontinued Medications Generic Name Dose Route Start Last Admin Trade Name Freq PRN Reason Stop Dose Admin Famotidine/Sodium Chloride 50 mls @ 100 mls/hr 10/30/16 17:15 10/30/16 17:38 Pepcid 20 Mg Premixed Ivpb - IVPB 10/30/16 17:44 100 mls/hr ONCE ONE Administration Ondansetron HCl 4 mg 10/30/16 17:15 10/30/16 17:38 Zofran Injection IVPB 10/30/16 17:16 4 mg ONCE ONE Administration <Randy Winn - Last Filed: 10/30/16 19:37> - LABORATORY CBC & Chemistry Diagram: 10/30/16 17:30 10/30/16 17:30 - RADIOLOGY Radiology Studies Ordered: Category Date Time Status ABDOMEN & PELVIS CT WITH CONTR [CT] Stat CT Scan 10/30/16 17:15 Ordered CHEST X-RAY PORTABLE* [RAD] Stat Radiology 10/30/16 17:14 Taken - Medications Given in the ED: ED Medications Discontinued Medications Generic Name Dose Route Start Last Admin Trade Name Freq PRN Reason Stop Dose Admin Ondansetron HCl 4 mg 10/30/16 17:15 10/30/16 17:38 Zofran Injection IVPB 10/30/16 17:16 4 mg ONCE ONE Administration <Gabe Vera - Last Filed: 10/30/16 19:50> Medical Decision Making - Medical Decision Making 10/30/16 17:42 A portion of this note was documented by scribe services under my direction. I have reviewed the details of the note, within reason, and agree with the documentation with the following case summary and management plan written by me. Patient treated in the ED. Patient arrives by ambulance to the emergency department. Nursing notes are reviewed and incorporated into the medical decision-making. Vital signs reviewed. Peripheral IV access obtained by the nurse, laboratory studies are drawn and sent, reviewed and interpreted by myself. Vital Signs Temp Pulse Resp BP Pulse Ox 98 F 72 20 97/57 100 10/30/16 17:07 10/30/16 17:07 10/30/16 17:07 10/30/16 17:07 10/30/16 17:07 61-year-old female with past medical history of hyperlipidemia, known to me from prior ED visit, returns for abdominal pain. Patient was recently admitted for perforated appendicitis where she was given antibiotics. Patient returned and saw me on October 26 for upper abdominal pain which improved with medications. Case is discussed with surgeon Dr. Stanley the patient was discharged. Patient reported feeling better until 2 days ago, she returned with epigastric and occasionally diffuse abdominal pain with persistent nausea, vomiting, diarrhea and inability to tolerate by mouth. Denies fevers. Came into the ED for further evaluation. We'll need to perform a CAT scan abdomen pelvis to evaluate for any changed features or complications of the perforated appendicitis. We'll get patient medications and IV fluids. Ultimately, given the patient's inability titer by mouth multiple visits, the patient will benefit from admission to the hospital. 10/30/16 19:49 CBC, BMP 10/30/16 17:30 10/30/16 17:30 CMP Sodium 141 mmol/L (136-145) 10/30/16 17:30 Potassium 3.9 mmol/L (3.5-5.1) 10/30/16 17:30 Chloride 104 mmol/L (98-107) 10/30/16 17:30 Carbon Dioxide 26 mmol/L (21-32) 10/30/16 17:30 Anion Gap 11 (8-16) 10/30/16 17:30 BUN 7 mg/dL (7-18) D 10/30/16 17:30 Creatinine 0.6 mg/dL (0.55-1.02) D 10/30/16 17:30 Creat Clearance w eGFR > 60 (>60) 10/30/16 17:30 Random Glucose 100 mg/dL (74-106) D 10/30/16 17:30 Lactic Acid 0.856 mmol/L (0.4-2.0) 10/30/16 17:30 Calcium 9.0 mg/dL (8.5-10.1) 10/30/16 17:30 Total Bilirubin 0.4 mg/dL (0.2-1.0) D 10/30/16 17:30 AST 19 U/L (15-37) D 10/30/16 17:30 ALT 42 U/L (12-78) D 10/30/16 17:30 Alkaline Phosphatase 117 U/L (45-117) D 10/30/16 17:30 Creatine Kinase 30 IU/L (26-192) 10/30/16 17:30 Troponin I < 0.02 ng/ml (0.00-0.05) 10/30/16 17:30 Total Protein 7.1 g/dl (6.4-8.2) 10/30/16 17:30 Albumin 3.1 g/dl (3.4-5.0) L 10/30/16 17:30 CT scan demonstrates perforated appendicitis, small bowel obstruction but several pelvic abscesses which have decreased in size. Given into the entire by mouth and small bowel obstruction in the persistence upper for the appendicitis, decision was made to admit the patient. Case is discussed with AALIYAH Jordan from [facility] surgery service. They will follows an inpatient. Case is discussed with Dr. Tinoco which is the patient for medical surgical admission. Admission diagnosis: Small bowel obstruction, perforated appendicitis Case discussed in detail with admitting physician including history, physical exam and ancillary studies. Admitting physician has assumed care for the patient, will follow all pending diagnostics and will complete the evaluation and treatment. <Gabe Vera - Last Filed: 10/30/16 19:50> *DC/Admit/Observation/Transfer - Attestations Scribe Attestion: 10/30/16 17:45 Documentation prepared by Randy Winn, acting as medical claims analyst for Gabe Vera MD <Randy Winn - Last Filed: 10/30/16 19:37> - Discharge Dispostion Admit: Yes <Gabe Vera - Last Filed: 10/30/16 19:50> Diagnosis at time of Disposition: Abdominal abscess, SBO (small bowel obstruction) - Discharge Dispostion Condition at time of disposition: Stable
[2016-10-30 17:43] LABS: BASOPHIL 0.4 % (0-2.0); EOSINOPHIL 0.3 % (0-4.5); MCH 30.6 pg (25.7-33.7); MCHC 33.5 g/dl (32.0-36.0); MEAN CELL VOLUME 91.2 fl (80-96); MEAN PLT VOLUME 8.7 fl (7.5-11.1); PLATELET COUNT 418 K/MM3 (134-434); RDW 13.6 % (11.6-15.6); WHITE BLOOD COUNT 8.5 K/mm3 (4.0-10.0)
[2016-10-30 18:01] LABS: INR 1.11 (0.82-1.09); PROTHROMBIN TIME (PATIENT) 12.2 SEC (9.98-11.88)
[2016-10-30 18:04] LABS: ACTIVATED PTT 29.2 SECONDS (26.9-34.4)
[2016-10-30 18:04] LABS: URINE APPEARANCE CLEAR; URINE BILIRUBIN NEGATIVE (NEGATIVE); URINE COLOR YELLOW; URINE GLUCOSE (UA) NEGATIVE (NEGATIVE); URINE KETONE TRACE (NEGATIVE); URINE NITRITE NEGATIVE (NEGATIVE); URINE UROBILINOGEN NEGATIVE E.U./dl (0.2-1.0)
[2016-10-30 18:05] LABS: URINE BLOOD 1+ (NEGATIVE); URINE LEUK ESTERASE TRACE (NEGATIVE); URINE PROTEIN 1+ (NEGATIVE)
[2016-10-30 18:06] LABS: URINE HYALINE CAST 1 /lpf; URINE MUCUS MANY; URINE RBC 22 /hpf (0-3); URINE WBC 8 /hpf (3-5)
[2016-10-30 18:07] LABS: ALBUMIN 3.1 g/dl (3.4-5.0); ANION GAP 11 (8-16); BILIRUBIN,TOTAL 0.4 mg/dL (0.2-1.0); CO2 26 mmol/L (21-32); CREATININE 0.6 mg/dL (0.55-1.02); GLUCOSE,RANDOM 100 mg/dL (74-106); SGOT/AST 19 U/L (15-37); SGPT/ALT 42 U/L (12-78); TOT PROT 7.1 g/dl (6.4-8.2)
[2016-10-30 18:10] LABS: ALK PHOS 117 U/L (45-117); TROPONIN I < 0.02 ng/ml (0.00-0.05)
--- NOTE | 2016-10-30 19:46 | PN ---
<Claudia Ibrahim - Last Filed: 10/30/16 23:32> Teaching Attending Note ATTENDING PHYSICIAN STATEMENT I saw and evaluated the patient. I reviewed the resident's note and discussed the case with the resident. I agree with the resident's findings and plan as documented. SUBJECTIVE: 61 yo F presents with abdominal pain, nausea, non bloody vomiting and diarrhea for 3 days. She describes her vomit as nonbilious and nonbloody. Patient was recently admitted at [facility] from 10/19-10/25 for appendicitis and was discharged when her symptoms resolved. Patient reports one day after being discharged she vomited and had severe epigastric pain on 10/26 and reported back to the ED. She saw Dr. Vera and was diagnosed with gastritis and sent home. Patient reports to the ED today due to the severity of her symptoms. She notes she had a colonoscopy done 5-6 years ago and they found a polyp and an endoscopy done last year that was negative. PMHx: hyperlipidemia, recent hospitalization for perforated appendicitis, hemorrhoids OBJECTIVE: Last Vital Signs Temp Pulse Resp BP Pulse Ox 98.6 F 69 20 129/53 95 10/30/16 23:22 10/30/16 23:22 10/30/16 23:22 10/30/16 23:22 10/30/16 21:35 GENERAL: Awake, alert, and fully oriented, in mild distress HEENT: Atraumatic. PERRLA, EOMI. Moist mucosa. No JVD LUNGS: No distress, speaks full sentences, clear to auscultation bilaterally HEART: Afib. Regular rhythm, normal S1 and S2, no murmurs, rubs or gallops, peripheral pulses normal and equal bilaterally. ABDOMEN: Soft, nontender, diminished bowel sounds. No guarding, no rebound. No masses appreciated. EXTREMITIES: Normal inspection, Normal range of motion, no edema. No clubbing or cyanosis. NEUROLOGICAL: Cranial nerves II through XII grossly intact. Normal speech, normal gait, no focal sensorimotor deficits SKIN: Warm, Dry, normal turgor, no rashes or lesions noted. CBCD WBC 8.5 K/mm3 (4.0-10.0) D 10/30/16 17:30 RBC 4.07 M/mm3 (3.60-5.2) 10/30/16 17:30 Hgb 12.5 GM/dL (10.7-15.3) 10/30/16 17:30 Hct 37.1 % (32.4-45.2) 10/30/16 17:30 MCV 91.2 fl (80-96) 10/30/16 17:30 MCHC 33.5 g/dl (32.0-36.0) 10/30/16 17:30 RDW 13.6 % (11.6-15.6) 10/30/16 17:30 Plt Count 418 K/MM3 (134-434) 10/30/16 17:30 MPV 8.7 fl (7.5-11.1) 10/30/16 17:30 CMP Sodium 141 mmol/L (136-145) 10/30/16 17:30 Potassium 3.9 mmol/L (3.5-5.1) 10/30/16 17:30 Chloride 104 mmol/L (98-107) 10/30/16 17:30 Carbon Dioxide 26 mmol/L (21-32) 10/30/16 17:30 Anion Gap 11 (8-16) 10/30/16 17:30 BUN 7 mg/dL (7-18) D 10/30/16 17:30 Creatinine 0.6 mg/dL (0.55-1.02) D 10/30/16 17:30 Creat Clearance w eGFR > 60 (>60) 10/30/16 17:30 Calcium 9.0 mg/dL (8.5-10.1) 10/30/16 17:30 Total Bilirubin 0.4 mg/dL (0.2-1.0) D 10/30/16 17:30 AST 19 U/L (15-37) D 10/30/16 17:30 ALT 42 U/L (12-78) D 10/30/16 17:30 Alkaline Phosphatase 117 U/L (45-117) D 10/30/16 17:30 Total Protein 7.1 g/dl (6.4-8.2) 10/30/16 17:30 Albumin 3.1 g/dl (3.4-5.0) L 10/30/16 17:30 Documentation prepared by Claudia Ibrahim, acting as medical sales for Elvira Tinoco M.D. <Elvira Tinoco - Last Filed: 10/31/16 00:00> Teaching Attending Note Name of Resident: Fidelina Green Problem List - Problems (1) SBO (small bowel obstruction) Assessment/Plan: IVF NS Clear fluids as tolerated Protonix 40mg Zofran prn NGT PRN Consult GI Consult Surgery , case discussed with Surgical PA (KARLY) will send stool studies to r/o C diff Code(s): K56.69 - OTHER INTESTINAL OBSTRUCTION (2) Abdominal abscess Assessment/Plan: Flagyl 500mg q6h Levofloxacin 500mg daily IVF Code(s): K65.1 - PERITONEAL ABSCESS (3) Perforation of appendix Assessment/Plan: Stable and walled off, will continue to monitor labs and vitals Code(s): K35.2 - ACUTE APPENDICITIS WITH GENERALIZED PERITONITIS
--- NOTE | 2016-10-30 20:19 | PN ---
Addendum entered and electronically signed by Nikki Jung PA 10/30/16 20:31: Original Note: Progress Note (short form) - Note Progress Note: Surgery note: The patient is well known to the surgical service. She was recently treated and seen for intra-abd abscess from probable appendicitis. She was discharged on oral antibiotics. Last friday she was seen in the ER at [facility] and treated for gasritis. Now she returns [facility] she has had diarrhea(non-bloody) 10 times on Friday and today. She denies any dysuria, no fever chills. Her abd pain is intermittent and mainly in the lower abd. Vital Signs Period Temp Pulse Resp BP Sys/[place] Pulse Ox Last 24 Hr 98 F 72 20 97/57 100 PE: Abd: soft, non-distended, mild LLQ tendneress. No guarding CBC, BMP 10/30/16 17:30 10/30/16 17:30 CT scan: previously seen abscess have decreased in size. no pneumoperitoneum. SB dilatation. A/P: 61 yo female with perforated appendicitis/intra abd abscess now with diarrhea S/w Er physician and to to be admitted to the medical service D/w Dr. Stanley, surgery to follow the pt ordered stool for c dif clears as tolerated IV abx
--- NOTE | 2016-10-30 21:42 | HP ---
CHIEF COMPLAINT: "Severe abdominal pain, nausea and vomiting" PCP: Marisa Whitmore GI: [facility] HISTORY OF PRESENT ILLNESS: Patient is a 61 year old female presented to the ED with the chief complaints of severe abdominal pain, nausea and vomiting. Patient was recently admitted for perforated appendicitis from 10/19/16-10/25/2016 and was treated with IV antibiotics only. Was sent home on Ciprofloxacin and Flagyl. Patient felt well for a day but had severe epigastric pain associated with nausea and vomiting. Patient visited ER on 10/26/2016 and was diagnosed with Gastritis. Since she went home, she has had nausea, several episodes of vomiting in a day (max 10 times); couldn't keep anything not even water Diarrhoea several episodes. Since yesterday, she developed severe abdominal pain, diffusely, non radiating, burning in nature, 9/10 in intensity; could hear gurgling sound. Had chills but no fever, rigors or sweating. The abdominal pain was unbearable hence she came to the ED. Bladder habit normal. Appetite decreased. Sleep disturbed since illness. Denies chest pain, sob, cough, palpitations. Patient mentioned that she had GI issues, went to GI doctor 5 years ago, had a colonoscopy done which showed colon polyp. She missed her routine colonoscopy last year. Had an Endoscopy one year back which was normal. ER course was notable for: (1) Afebrile, hypotensive, labs wnl (2) CT abdomen/Pelvis: (3) IV NS, IV morphine, Tylenol, Famotidine Recent Travel: PAST MEDICAL HISTORY: Hyperlipidemia; colon polyps; recently diagnosed with perforated appendicitis; hemorrhoids PAST SURGICAL HISTORY: Total abdominal Hysterectomy in 1999 with one oopherectomy ? right maybe, pt unsure Social History: Smoking: Denies Alcohol:Denies Drugs: Denies Family History: mother age 68, renal/HTN father , unkown brother alive, alcoholic brother alive and well Allergies No Known Allergies Allergy (Verified 10/26/16 22:27) HOME MEDICATIONS: Home Medications Medication Instructions Recorded Acetaminophen [Tylenol] 325 mg PO QID 10/30/16 Ondansetron [Zofran Odt -] 4 mg SL TID #21 od.tablet 10/30/16 Ondansetron [Zuplenz] 4 mg PO QID 10/30/16 Oxycodone HCl/Acetaminophen 2 tab PO Q4H #20 tablet MDD 6 10/30/16 [Percocet 5-325 mg Tablet] Pantoprazole Sodium 40 mg PO DAILY 10/30/16 Ranitidine [Zantac -] 150 mg PO BID 10/30/16 REVIEW OF SYSTEMS CONSTITUTIONAL: Present: Chills. Absent: fever, diaphoresis, generalized weakness, malaise, loss of appetite, weight change HEENT: Absent: rhinorrhea, nasal congestion, throat pain, throat swelling, difficulty swallowing, mouth swelling, ear pain, eye pain, visual changes CARDIOVASCULAR: Absent: chest pain, syncope, palpitations, irregular heart rate, lightheadedness , peripheral edema RESPIRATORY: Absent: cough, shortness of breath, dyspnea with exertion, orthopnea, wheezing, stridor, hemoptysis GASTROINTESTINAL: Present: abdominal pain, abdominal distension, nausea, vomiting, diarrhea, Absent: constipation, melena, hematochezia GENITOURINARY: Absent: dysuria, frequency, urgency, hesitancy, hematuria, flank pain, genital pain MUSCULOSKELETAL: Absent: myalgia, arthralgia, joint swelling, back pain, neck pain SKIN: Absent: rash, itching, pallor HEMATOLOGIC/IMMUNOLOGIC: Absent: easy bleeding, easy bruising, lymphadenopathy, frequent infections ENDOCRINE: Absent: unexplained weight gain, unexplained weight loss, heat intolerance, cold intolerance NEUROLOGIC: Absent: headache, focal weakness or paresthesias, dizziness, unsteady gait, seizure, mental status changes, bladder or bowel incontinence PSYCHIATRIC: Absent: anxiety, depression, suicidal or homicidal ideation, hallucinations. PHYSICAL EXAMINATION Vital Signs - 24 hr 10/30/16 21:35 Pulse Rate [ 69 Left] Respiratory 18 Rate Blood Pressure 122/66 [Arm] O2 Sat by Pulse 95 Oximetry (%) GENERAL: Moderately built female, lying comfortably in bed, Awake, alert, and fully oriented, in no acute distress. HEAD: Normal with no signs of trauma. EYES: EOM intact, no pallor or icterus. EARS, NOSE, THROAT: Ears normal. Moist mucous membranes. NECK: Supple. LUNGS: Breath sounds equal, clear to auscultation bilaterally. No wheezes, and no crackles. No accessory muscle use. HEART: Regular rate and rhythm, normal S1 and S2 without murmur. ABDOMEN: Soft, tenderness on palpation diffusely, not distended, normoactive bowel sounds, no guarding, no rebound, no masses. No hepatomegaly or splenomegaly. MUSCULOSKELETAL: Normal range of motion at all joints. No bony deformities or tenderness. No CVA tenderness. UPPER EXTREMITIES: 2+ pulses, warm, well-perfused. No cyanosis. No clubbing. No peripheral edema. LOWER EXTREMITIES: 2+ pulses, warm, well-perfused. No calf tenderness. No peripheral edema. NEUROLOGICAL: Cranial nerves II-XII intact. Normal speech. Normal gait. PSYCHIATRIC: Cooperative. Good eye contact. Appropriate mood and affect. SKIN: Warm, dry, normal turgor, no rashes or lesions noted, normal capillary refill. CT abdomen/Pelvis Impression: In comparison to a prior CT exam of 10/23/2016 note is again made of evidence of perforated appendicitis. Small bowel obstruction is noted which is probably mildly increased. Several pelvic abscesses are seen which appear decreased in size. ASSESSMENT/PLAN: Patient is a 61 year old female with significant past medical history of Hyperlipidemia; colon polyps; recently diagnosed with perforated appendicitis; hemorrhoids presented to the ED with the chief complaints of severe abdominal pain, nausea and vomiting. # Perforated appendicitis Patient presented with severe abdominal pain associated with nausea, several episodes of vomiting and diarrhoea Recently diagnosed with perforated appendicitis and admitted in patient from 10/19/16-10/25/2016 and was treated with IV antibiotics only On arrival, patient was Afebrile, hypotensive, labs wnl CT abdomen/Pelvis report mentioned as above In the ED, patient received IV NS, IV morphine, Tylenol, Famotidine Admitted in Med-Surg As per Surgical PA, can start with clears and IV antibiotics IV Levofloxacin and IV Flagyl started IV NS @ 100mls/hr IV Zofran PRN NGT PRN Pain management Surgical consult placed # Colon polyps Needs outpatient colonoscopy # Hyperlipidemia Not on any medication # FEN IV NS Electrolytes to be repeated Clear diet # Prophylaxis For DVT: On Scds, not on anticoagulation just in case patient goes for emergent surgery. For GI: On Pantop 40mg Daily # Code Status: Full Code # Dispo: Admitted in Med-Surg. Duration of stay unknown. Illness, Investigation and Plan of care explained to the patient. She verbalized understanding. Case seen and discussed with Dr. Tinoco. Visit type - Emergency Visit Emergency Visit: Yes ED Registration Date: 10/30/16 Care time: The patient presented to the Emergency Department on the above date and was hospitalized for further evaluation of their emergent condition. - New Patient This patient is new to me today: Yes Date on this admission: 10/30/16 - Critical Care Critical Care patient: No
[2016-10-30] MEDS ORDERED: ONDANSETRON 4 MG/2 ML VIAL IVPB PRN (21:43)
[2016-10-30] MEDS: SODIUM CHLORIDE 1,000 ML IV SCH (22:24)
[2016-10-30 23:28] VITALS: BMI 27.3
[2016-10-31] MEDS ORDERED: morphine CARPU-JECT 2 MG/1 ML DISP.SYRIN IVPUSH ONE (01:42)
[2016-10-31] MEDS: LEVOFLOXACIN 750 MG IVPB 150 ML IVPB SCH ×2 (01:43→11:00)
[2016-10-31] MEDS: METRONIDAZOLE 500 MG PREMIXED 100 ML IVPB SCH ×3 (03:15→17:45)
[2016-10-31] MEDS: SODIUM CHLORIDE 1,000 ML IV SCH ×2 (05:10→17:45)
[2016-10-31 07:22] LABS: BASOPHIL 0.4 % (0-2.0); EOSINOPHIL 0.8 % (0-4.5); MCH 30.7 pg (25.7-33.7); MCHC 33.4 g/dl (32.0-36.0); MEAN PLT VOLUME 8.5 fl (7.5-11.1); NEUTROPHILS 59.6 % (42.8-82.8); PLATELET COUNT 355 K/MM3 (134-434); RDW 13.4 % (11.6-15.6); WHITE BLOOD COUNT 5.9 K/mm3 (4.0-10.0)
[2016-10-31 07:43] LABS: INR 1.26 (0.82-1.09); PROTHROMBIN TIME (PATIENT) 13.9 SEC (9.98-11.88)
[2016-10-31 07:46] LABS: ACTIVATED PTT 29.7 SECONDS (26.9-34.4)
--- NOTE | 2016-10-31 08:23 | PN ---
Progress Note (short form) - Note Progress Note: Attending Surgeon Patient well known to me w/ perforated appendicitis and IAA not amenable to IR drainage returned to the hospital w/ nausea and diarrhea after previous ER visit ; present c/o's thought to be due to PO antibiotics and possible C. diff; patient was admitted for IV hydration and f/u CT scan; she states she is feeling better today; she tolerated a clear liquid diet. O/E VSS AF Abdo-soft; flat non tender WBC-nl C. diff pending CT reviewed IMP:perforated appendicitis w/ decreasing IAA's; ? C. diff PLAN:Continue present tx.; possible surgical intervention on this admission Tiago Stanley MD FACS
[2016-10-31 08:31] LABS: ALBUMIN 2.7 g/dl (3.4-5.0); ANION GAP 9 (8-16); BILIRUBIN,TOTAL 0.6 mg/dL (0.2-1.0); CALCIUM 8.5 mg/dL (8.5-10.1); CO2 28 mmol/L (21-32); CREATININE 0.6 mg/dL (0.55-1.02); GLUCOSE,RANDOM 99 mg/dL (74-106); MAGNESIUM 1.9 mg/dL (1.8-2.4); PHOSPHOROUS 2.9 mg/dL (2.5-4.9); SGOT/AST 18 U/L (15-37); SGPT/ALT 34 U/L (12-78); TOT PROT 6.2 g/dl (6.4-8.2)
[2016-10-31 08:32] LABS: ALK PHOS 102 U/L (45-117)
[2016-10-31] MEDS ORDERED: PANTOPRAZOLE SODIUM 40 MG in SODIUM CHLORIDE 100 ML IVPB SCH (10:00)
[2016-10-31] MEDS: PANTOPRAZOLE SODIUM 40 MG/100 ML PRE-DOCKED IVPB SCH (10:17)
--- NOTE | 2016-10-31 16:17 | EKG ---
Test Reason : Blood Pressure : / mmHG Vent. Rate : 076 BPM Atrial Rate : 076 BPM P-R Int : 188 ms QRS Dur : 092 ms QT Int : 394 ms P-R-T Axes : 055 -33 052 degrees QTc Int : 443 ms NORMAL SINUS RHYTHM POSSIBLE LEFT ATRIAL ENLARGEMENT LEFT AXIS DEVIATION NONSPECIFIC T WAVE ABNORMALITY ABNORMAL ECG NO PREVIOUS ECGS AVAILABLE Confirmed by JEAN NAGY MD ([id number]) on 10/31/2016 4:16:53 PM Referred By: Confirmed By:JEAN NAGY MD
--- NOTE | 2016-10-31 17:14 | PN ---
Physical Exam: SUBJECTIVE: Patient seen and examined Pt is awake, alert and fully orineted no s/s of acute distress Pt denies abdominal pain no n/v no fever chills Pt is ambulates Pt is tolerating liquid diet well OBJECTIVE: Vital Signs Period Temp Pulse Resp BP Sys/[place] Pulse Ox Last 24 Hr 98.3 F-98.8 F 65-71 16-20 116-129/53-66 95-98 GENERAL: The patient is awake, alert, and fully oriented, in no acute distress. HEAD: Normal with no signs of trauma. NECK: Trachea midline, full range of motion, supple. LUNGS: Breath sounds equal, clear to auscultation bilaterally, no wheezes, no crackles, no accessory muscle use. HEART: Regular rate and rhythm, S1, S2 without murmur, rub or gallop. ABDOMEN: Soft, epigastric tender, nondistended, normoactive bowel sounds, no guarding, no rebound, no hepatosplenomegaly, no masses. EXTREMITIES: 2+ pulses, warm, well-perfused, no edema. NEUROLOGICAL: Normal speech, gait not observed. PSYCH: Normal mood, normal affect. SKIN: Warm, dry, normal turgor, no rashes or lesions noted Laboratory Results - last 24 hr 10/31/16 10/31/16 10/31/16 06:00 06:00 08:10 WBC 5.9 D RBC 3.87 Hgb 11.9 Hct 35.6 MCV 92.0 MCHC 33.4 RDW 13.4 Plt Count 355 MPV 8.5 Neutrophils % 59.6 D Lymphocytes % 25.9 D Monocytes % 13.3 H Eosinophils % 0.8 D Basophils % 0.4 INR 1.26 H PTT (Actin FS) 29.7 Sodium 143 Potassium 3.3 L Chloride 106 Carbon Dioxide 28 Anion Gap 9 BUN 5 L D Creatinine 0.6 Creat Clearance w eGFR > 60 Random Glucose 99 Calcium 8.5 Phosphorus 2.9 D Magnesium 1.9 Total Bilirubin 0.6 D AST 18 ALT 34 Alkaline Phosphatase 102 Total Protein 6.2 L Albumin 2.7 L Active Medications Generic Name Dose Route Start Last Admin Trade Name Freq PRN Reason Stop Dose Admin Sodium Chloride 1,000 mls @ 100 mls/hr 10/30/16 21:45 10/31/16 05:10 Normal Saline - IV 100 mls/hr ASDIR OVIDIO Administration Metronidazole 100 mls @ 100 mls/hr 10/31/16 02:00 10/31/16 10:17 Flagyl 500mg Premixed Ivpb - IVPB 100 mls/hr Q8H-IV OVIDIO Administration Levofloxacin 150 mls @ 100 mls/hr 10/31/16 00:23 10/31/16 11:00 Levaquin 750 Mg Premixed Ivpb - IVPB 100 mls/hr DAILY OVIDIO Administration Ondansetron HCl 4 mg 10/30/16 21:43 Zofran Injection IVPB Q6H PRN NAUSEA Pantoprazole Sodium 40 mg 10/31/16 10:00 10/31/16 10:17 Protonix 40mg Ivpb (Pre-Docked) IVPB 40 mg DAILY OVIDIO Administration CBC, BMP 10/31/16 06:00 10/31/16 08:10 ASSESSMENT/PLAN: 61 yea r old female with pmh of HPLD, Colon Polyps, Total abdominal Hysterectomy , Recently perforated appendicitis presents to the ED with abdominal pain, nausea, vomiting and diarrhea. Pt was found to have SBO of CT of abdomen, perforated appendicitis, pelvic abscesses. Small Bowel obstruction Likely partial Pt is passing gas and having bowel movement, last on was yesterday conservative management Clear liquid Serial abdominal exam IV zofran NGT Prn Consult surgery Dr Stanley, he recommend to continue current management Perforated appendicitis with pelvic abscesses are seen which appear decreased in size. admitted on 10/19/16, was management with IV antibiotics, was discharged 10/25/16 No fever , no leukocytosis Was started on Flagyl and Levaquin by surgery Dr Stanley Surgery is on the case Consider drainage by IR if appropriate Blood culture pending Asymptomactic bateruria UA wbc 8, trace leuk esterase, negative nitrite, 1+ protein, 1+ blood No dysuria Urine culture pending FEN Fluid: NS at 100ml/h Electrolytes: Hypokalemia repleted Nutrition: liquid diet DVT: SCD, ambulation Disposition: Keep in medsurg until SBO resolves and abdominal/pelvic infection/ abscesses resolve. Visit type - Emergency Visit Emergency Visit: Yes ED Registration Date: 10/30/16 Care time: The patient presented to the Emergency Department on the above date and was hospitalized for further evaluation of their emergent condition. - New Patient This patient is new to me today: Yes Date on this admission: 10/31/16 - Critical Care Critical Care patient: No - Discharge Referral Referred to [facility] No
[2016-10-31] MEDS ORDERED: POTASSIUM CHLORIDE ORAL LIQUID 20 MEQ/15 ML PO ONE (17:35)
--- NOTE | 2016-10-31 17:47 | PN ---
Teaching Attending Note Name of Resident: [place] ATTENDING PHYSICIAN STATEMENT I saw and evaluated the patient. I reviewed the resident's note and discussed the case with the resident. I agree with the resident's findings and plan as documented. SUBJECTIVE:pain has improved but continues to have diarrhea. states she been experiencing diarrhea since recent discharge. assoc with multiple episodes of vomiting which has now resolved. tolerating liquid diet. denies CP, SOB,fever, chills or travel. did not complete recent abx course OBJECTIVE: Last Vital Signs Temp Pulse Resp BP Pulse Ox 98.8 F 71 18 127/56 95 10/31/16 16:51 10/31/16 16:51 10/31/16 16:51 10/31/16 16:51 10/31/16 09:00 General NAD Abdomen tenderness on deep palpation of LLQ no rebound or guarding. soft ND normoactive BS ASSESSMENT AND PLAN: 61yo F wtih PMH dyslipidemia with recent admission for perforated appendix which was medically managed 1. Diarrhea- cdiff negative. afebrile, no leukocytosis. small bowel dilation. has multiple intra-abdominal abscess from prior admission but these are smaller than previous study. states she did PPI trial with no relief. on levaquin/ flagyl here. tolerating liquid diet. recent CT scans showing ruputured appendix but can not r/o underlying mass, nothing appreciated on this scan. will review images with surgery if something there that can be bx and if should be further investigated. pain and nausea control 2. hypokalemia- Kcl 40meq 3. DVT ppx- EAM
[2016-11-01] MEDS: METRONIDAZOLE 500 MG PREMIXED 100 ML IVPB SCH ×3 (02:45→17:19)
[2016-11-01] MEDS: SODIUM CHLORIDE 1,000 ML IV SCH ×2 (05:00→17:20)
[2016-11-01 08:02] LABS: CALCIUM 8.6 mg/dL (8.5-10.1); MAGNESIUM 1.9 mg/dL (1.8-2.4)
[2016-11-01 08:05] LABS: COCKROFT - GAULT 129.523; CREATININE 0.5 mg/dL (0.55-1.02); PHOSPHOROUS 2.6 mg/dL (2.5-4.9)
--- NOTE | 2016-11-01 09:39 | PN ---
Progress Note (short form) - Note Progress Note: Attending Surgeon No c/o; tolerating diet; less diarrhea; no vomiting VSS AF Abdomen soft/non tender WBC WNL C. diff negative IMP: improving PLAN: Continue present tx.; advance diet; still plan to continue presnet tx. and plan on interval appendectomy Tiago Stanley MD FACS
[2016-11-01] MEDS: PANTOPRAZOLE SODIUM 40 MG/100 ML PRE-DOCKED IVPB SCH (10:01)
[2016-11-01] MEDS: LEVOFLOXACIN 750 MG IVPB 150 ML IVPB SCH (11:40)
--- NOTE | 2016-11-01 15:17 | PN ---
Physical Exam: SUBJECTIVE: Patient seen and examined Pt is awake, alert and oriented Pt is complaining about potassium taste Improvement in stool consistency become more formed, brown, no blood or mucus no fever or chills No abdominal pain No n/v Pt tolerating diet OBJECTIVE: Vital Signs Period Temp Pulse Resp BP Sys/[place] Pulse Ox Last 24 Hr 98.5 F-98.8 F 65-78 18-20 113-127/56-64 97 GENERAL: The patient is awake, alert, and fully oriented, in no acute distress. HEAD: Normal with no signs of trauma. NECK: Trachea midline, full range of motion, supple. LUNGS: Breath sounds equal, clear to auscultation bilaterally, no wheezes, no crackles, no accessory muscle use. HEART: Regular rate and rhythm, S1, S2 without murmur, rub or gallop. ABDOMEN: Soft, minimal epigastric tender, nondistended, normoactive bowel sounds , no guarding, no rebound, no hepatosplenomegaly, no masses. EXTREMITIES: 2+ pulses, warm, well-perfused, no edema. NEUROLOGICAL: Normal speech, gait not observed. PSYCH: Normal mood, normal affect. SKIN: Warm, dry, normal turgor, no rashes or lesions noted Laboratory Results - last 24 hr 11/01/16 06:30 Sodium 145 Potassium 3.8 Chloride 110 H Carbon Dioxide 26 Anion Gap 9 BUN 2 L* D Creatinine 0.5 L Random Glucose 103 Calcium 8.6 Phosphorus 2.6 Magnesium 1.9 Active Medications Generic Name Dose Route Start Last Admin Trade Name Freq PRN Reason Stop Dose Admin Sodium Chloride 1,000 mls @ 100 mls/hr 10/30/16 21:45 11/01/16 05:00 Normal Saline - IV 100 mls/hr ASDIR OVIDIO Administration Metronidazole 100 mls @ 100 mls/hr 10/31/16 02:00 11/01/16 10:31 Flagyl 500mg Premixed Ivpb - IVPB 100 mls/hr Q8H-IV OVIDIO Administration Levofloxacin 150 mls @ 100 mls/hr 10/31/16 00:23 11/01/16 11:40 Levaquin 750 Mg Premixed Ivpb - IVPB 100 mls/hr DAILY OVIDIO Administration Ondansetron HCl 4 mg 10/30/16 21:43 Zofran Injection IVPB Q6H PRN NAUSEA Pantoprazole Sodium 40 mg 10/31/16 10:00 11/01/16 10:01 Protonix 40mg Ivpb (Pre-Docked) IVPB 40 mg DAILY OVIDIO Administration CBC, BMP 10/31/16 06:00 11/01/16 06:30 Microbiology 10/30/16 17:50 Urine - Urine Clean Catch Urine Culture - Final NO GROWTH OBTAINED 10/30/16 12:40 Stool Clostridium difficile Antigen (TONE) - Final 10/30/16 12:40 Stool Clostridium difficile Toxin Assay - Final 10/30/16 17:30 Blood - Peripheral Venous Blood Culture - Preliminary NO GROWTH OBTAINED AFTER 24 HOURS, INCUBATION TO CONTINUE FOR 4 DAYS. 10/30/16 17:30 Blood - Peripheral Venous Blood Culture - Preliminary NO GROWTH OBTAINED AFTER 24 HOURS, INCUBATION TO CONTINUE FOR 4 DAYS. Laboratory Tests 11/01/16 06:30 Phosphorus 2.6 Magnesium 1.9 ASSESSMENT/PLAN: 61 yea r old female with pmh of HPLD, Colon Polyps, Total abdominal Hysterectomy , Recently perforated appendicitis presents to the ED with abdominal pain, nausea, vomiting and diarrhea. Pt was found to have SBO, perforated appendicitis , pelvic abscesses on CT of abdomen. Perforated appendicitis with pelvic abscesses are seen which appear decreased in size. admitted on 10/19/16, was management with IV antibiotics, was discharged 10/25/16 No fever, no leukocytosis Was started on Flagyl and Levaquin by surgery day 3 Dr Stanley Surgery is on the case Serial abdominal exam Blood culture negative so far, will continue to follow Small Bowel obstruction Likely partial ( resolved) Pt is passing gas and having bowel movement, last one was yesterday conservative management Surgery on case was on Clear liquid, advance to soft diet by surgery IV zofran Asymptomactic bateruria ( resolved) UA wbc 8, trace leuk esterase, negative nitrite, 1+ protein, 1+ blood No dysuria Urine culture negative FEN Fluid: NS at 100ml/h Electrolytes: no abnormalities Nutrition: soft diet DVT: SCD, ambulation Disposition: Keep in medsur abdominal/pelvic infection/abscesses resolve. Visit type - Emergency Visit Emergency Visit: Yes ED Registration Date: 10/30/16 Care time: The patient presented to the Emergency Department on the above date and was hospitalized for further evaluation of their emergent condition. - New Patient This patient is new to me today: Yes - Critical Care Critical Care patient: No - Discharge Referral Referred to [facility] No
--- NOTE | 2016-11-01 16:28 | PN ---
Teaching Attending Note Name of Resident: [place] ATTENDING PHYSICIAN STATEMENT I saw and evaluated the patient. I reviewed the resident's note and discussed the case with the resident. I agree with the resident's findings and plan as documented. SUBJECTIVE:currently asymptomatic. tolerating diet. had 1 soft BM (no longer watery) denies CP, SOB,fever, chills, N/V OBJECTIVE: Last Vital Signs Temp Pulse Resp BP Pulse Ox 98.5 F 78 20 123/59 97 11/01/16 14:13 11/01/16 14:13 11/01/16 14:13 11/01/16 06:00 10/31/16 20:32 General NAD Abdomen tenderness on deep palpation of LLQ no rebound or guarding. soft ND normoactive BS ASSESSMENT AND PLAN: 61yo F wtih PMH dyslipidemia with recent admission for perforated appendix which was medically managed 1. Diarrhea- cdiff negative. afebrile, no leukocytosis. clinically improved. tolerating diet. will advance. will d/w surgery next step at this time. will ultimately need to have appendix removed. on levaquin/flagyl day2. pain and nausea control 2. hypokalemia- improved 3. DVT ppx- EAM
[2016-11-02] MEDS: METRONIDAZOLE 500 MG PREMIXED 100 ML IVPB SCH ×3 (02:02→18:26)
[2016-11-02] MEDS: SODIUM CHLORIDE 1,000 ML IV SCH (04:18)
[2016-11-02] MEDS: PANTOPRAZOLE SODIUM 40 MG/100 ML PRE-DOCKED IVPB SCH (10:32)
--- NOTE | 2016-11-02 10:38 | PN ---
Progress Note (short form) - Note Progress Note: states diarrhea has improved, less liquid than previously. tolerating diet but only able to eat small amounts. denies Cp, fever, chills, N/V Current Medications Generic Name Dose Route Start Last Admin Trade Name Freq PRN Reason Stop Dose Admin Sodium Chloride 1,000 mls @ 100 mls/hr 10/30/16 21:45 11/02/16 04:18 Normal Saline - IV 100 mls/hr ASDIR OVIDIO Administration Metronidazole 100 mls @ 100 mls/hr 10/31/16 02:00 11/02/16 09:24 Flagyl 500mg Premixed Ivpb - IVPB 100 mls/hr Q8H-IV OVIDIO Administration Levofloxacin 150 mls @ 100 mls/hr 10/31/16 00:23 11/01/16 11:40 Levaquin 750 Mg Premixed Ivpb - IVPB 100 mls/hr DAILY OVIDIO Administration Ondansetron HCl 4 mg 10/30/16 21:43 Zofran Injection IVPB Q6H PRN NAUSEA Pantoprazole Sodium 40 mg 10/31/16 10:00 11/02/16 10:32 Protonix 40mg Ivpb (Pre-Docked) IVPB 40 mg DAILY OVIDIO Administration Last Vital Signs Temp Pulse Resp BP Pulse Ox 98 F 65 18 131/66 98 11/02/16 07:15 11/02/16 07:15 11/02/16 07:15 11/02/16 07:15 11/01/16 21:00 General NAD Abdomen no rebound or guarding. soft NT/ND normoactive BS ASSESSMENT AND PLAN: 61yo F wtih PMH dyslipidemia with recent admission for perforated appendix which was medically managed 1. Diarrhea- cdiff negative. afebrile, no leukocytosis. clinically improved. diarrhea still loose but less liquid. will cont to monitor to ensure BM become more formed, as has already returned to the hospital due to the same reason. encouraged to eat more. on levaquin/flagyl day3. will ultimately require removal of appendix, will need close follow up with surgery 2. hypokalemia- improved 3. DVT ppx- EAM 4. d/c planning tomorrow pending improved clinical status Visit type - Emergency Visit Emergency Visit: Yes ED Registration Date: 10/30/16 Care time: The patient presented to the Emergency Department on the above date and was hospitalized for further evaluation of their emergent condition. - New Patient This patient is new to me today: No - Critical Care Critical Care patient: No - Discharge Referral Referred to [facility] No
--- NOTE | 2016-11-02 10:40 | PN ---
Progress Note (short form) - Note Progress Note: Attending Surgeon No c/o; tolerated regular diet; BM's more formed and jesica frequent O/E VSS AF abdo-soft; flat and non tender IMP: improving PLAN; Continue present tx; anticipate d/c to OPD f/u 11/03/16. Tiago Stanley MD FACS
[2016-11-02] MEDS: LEVOFLOXACIN 750 MG IVPB 150 ML IVPB SCH (11:52)
[2016-11-03] MEDS: METRONIDAZOLE 500 MG PREMIXED 100 ML IVPB SCH ×2 (01:17→10:27)
[2016-11-03] MEDS: PANTOPRAZOLE SODIUM 40 MG/100 ML PRE-DOCKED IVPB SCH (09:43)
--- NOTE | 2016-11-03 10:44 | PN ---
Progress Note (short form) - Note Progress Note: abdominal pain resolved. had formed BM last night. tolerating diet. denies Cp, fever, chills, N/V Current Medications Generic Name Dose Route Start Last Admin Trade Name Freq PRN Reason Stop Dose Admin Sodium Chloride 1,000 mls @ 100 mls/hr 10/30/16 21:45 11/02/16 04:18 Normal Saline - IV 100 mls/hr ASDIR OVIDIO Administration Metronidazole 100 mls @ 100 mls/hr 10/31/16 02:00 11/02/16 09:24 Flagyl 500mg Premixed Ivpb - IVPB 100 mls/hr Q8H-IV OVIDIO Administration Levofloxacin 150 mls @ 100 mls/hr 10/31/16 00:23 11/01/16 11:40 Levaquin 750 Mg Premixed Ivpb - IVPB 100 mls/hr DAILY OVIDIO Administration Ondansetron HCl 4 mg 10/30/16 21:43 Zofran Injection IVPB Q6H PRN NAUSEA Pantoprazole Sodium 40 mg 10/31/16 10:00 11/02/16 10:32 Protonix 40mg Ivpb (Pre-Docked) IVPB 40 mg DAILY OVIDIO Administration Last Vital Signs Temp Pulse Resp BP Pulse Ox 98 F 65 18 131/66 98 11/02/16 07:15 11/02/16 07:15 11/02/16 07:15 11/02/16 07:15 11/01/16 21:00 General NAD Abdomen no rebound or guarding. soft NT/ND normoactive BS ASSESSMENT AND PLAN: 61yo F wtih PMH dyslipidemia with recent admission for perforated appendix which was medically managed 1. Diarrhea- cdiff negative. afebrile, no leukocytosis. clinically improved and tolerating regular diet. formed BM last night. will cont abx for 7 days. on levaquin/flagyl day4. will ultimately require removal of appendix, will need close follow up with surgery 2. hypokalemia- improved 3. DVT ppx- EAM 4. d/c home today Visit type - Emergency Visit Emergency Visit: Yes ED Registration Date: 10/30/16 Care time: The patient presented to the Emergency Department on the above date and was hospitalized for further evaluation of their emergent condition. - New Patient This patient is new to me today: No - Critical Care Critical Care patient: No - Discharge Referral Referred to [facility] No
[2016-11-03] MEDS: LEVOFLOXACIN 750 MG IVPB 150 ML IVPB SCH (11:42)
[2016-11-03 13:54] VITALS: BP 133/68; PULSE 78; TEMP 98.2
--- NOTE | 2016-11-03 14:24 | PN ---
Progress Note (short form) - Note Progress Note: Attending Surgeon No c/o normal GI function VSS AF abdomen benign D/C home to OPD f/u 11/12/16. Tiago Stanley MD FACS
== END 2016-11-03 17:37 | disposition home or self-care (01) | DRG 249 ==
LOC: JER 17:02 → JERBED 19:51 → J7W 22:33
PROVIDERS: ADMIT Internal Medicine; ATTEND Internal Medicine
DX: R19.7 Diarrhea, unspecified (principal); E87.6 Hypokalemia; E78.5 Hyperlipidemia, unspecified; K56.60 Unspecified intestinal obstruction
CPT/HCPCS: 36415; 71010-TC; 74177-TC; 80048; 80053; 81003; 81015; 82550; 83605; 83735; 84100; 84484; 85025; 85610; 85730; 86850; 86900; 86901; 87040; 87086; 87324; 87449; 93005; 93010; 99283-25

== ENCOUNTER 2016-12-13 07:23 | Day surgery (SDC) | payer OTHER ==
[2016-12-12 13:04] VITALS: BMI 27.1
[2016-12-13] MEDS ORDERED: BUPIVACAINE HCL/PF 0.5% (5MG/ML) 10 ML VIAL ONE (08:59)
[2016-12-13] MEDS ORDERED: MIDAZOLAM HCL 2 MG/2 ML SINGLE DOSE VIAL ONE (09:16)
[2016-12-13] MEDS ORDERED: DEXAMETHASONE SOD PHOSPHATE 4 MG/1 ML VIAL ONE (09:16)
[2016-12-13] MEDS ORDERED: ceFAZolin SODIUM 1 GM VIAL ONE (09:16)
[2016-12-13] MEDS ORDERED: PROPOFOL 20 ML ONE (09:16)
[2016-12-13] MEDS ORDERED: ROCURONIUM BROMIDE 50 MG/5 ML VIAL ONE ×2 (09:16→11:33)
[2016-12-13] MEDS ORDERED: ceFAZolin SODIUM 1 GM VIAL IVPB ONE (09:37)
[2016-12-13] MEDS ORDERED: GLYCOPYRROLATE 0.2 MG/1 ML VIAL ONE (10:31)
[2016-12-13] MEDS ORDERED: NEOSTIGMINE METHYLSULFATE 0.5 MG/ML - 10 ML MDV ONE (10:31)
[2016-12-13] MEDS ORDERED: KETOROLAC TROMETHAMINE 30 MG/1 ML VIAL ONE (10:52)
[2016-12-13] MEDS ORDERED: ONDANSETRON 4 MG/2 ML VIAL IVPUSH PRN (10:56)
[2016-12-13] MEDS ORDERED: oxyCODONE HCL 5 MG TABLET PO PRN (10:56)
[2016-12-13] MEDS ORDERED: ACETAMINOPHEN 1000 MG/100 ML VIAL (NON FORMULARY) IVPB ONE (10:58)
[2016-12-13] MEDS ORDERED: LACTATED RINGERS SOLUTION 1,000 ML IV SCH (11:00)
[2016-12-13] MEDS ORDERED: BUPIVACAINE HCL/PF 0.5% (5MG/ML) 10 ML VIAL IJ ONE (12:25)
--- NOTE | 2016-12-13 12:45 | OP ---
Operative Note - Note: Operative Date: 12/13/16 Pre-Operative Diagnosis: chronic appendicitis Operation: laparoscopic appendectomy Findings: chronic appendicitis; # adhesions from previous costumed character surgery Surgeon: Tiago Stanley Powder Compounder: Melissa Gupta Anesthesia: General Specimens Removed: appendix Estimated Blood Loss (mls): 20
[2016-12-13 14:30] VITALS: TEMP 98
[2016-12-13 18:06] VITALS: BP 131/73; PULSE 71
--- NOTE | 2016-12-17 06:37 | OP ---
DATE OF OPERATION: 12/13/2016 PREOPERATIVE DIAGNOSIS: Chronic appendicitis. POSTOPERATIVE DIAGNOSIS: Chronic appendicitis. PROCEDURE: Interval laparoscopic appendectomy. SURGEON: Tiago Stanley MD BUSINESS OBJECTS ARCHITECT: Melissa Gupta PA-C ANESTHESIA: General. OPERATIVE FINDINGS: There was a thickened, enlarged appendix adhesed in the right lower quadrant of the pelvis. There were multiple adhesions from previous surgery. The rest of the findings were unremarkable. DESCRIPTION OF PROCEDURE: The patient was placed on the operating table in supine position, and after the induction of general anesthesia and the placement of sequential compression devices on the patients lower extremities, the abdomen was prepped with ChloraPrep and draped in sterile fashion. Pneumoperitoneum was established above the umbilicus using a Roseanne cannula. An additional 5-mm left lower quadrant port was placed, and laparoscopy was carried out. The previously noted findings were observed. Another 5-mm right lower quadrant port was placed, and then using a combination of blunt and sharp and electrocautery dissection, adhesions were taken down from the abdominal wall until the pelvis could be completely visualized. Next, a 12-mm suprapubic port was placed. Then, the appendix was identified at the confluence of the tinea of the right colon coming to the cecum. The tip of the appendix was bluntly mobilized using blunt dissection until it was free. The mesoappendix was sequentially divided using the LigaSure device until the junction of the appendix and the base of the cecum were clearly identified. Once clearly identified, a 45-mm Endo ADELIA blue cartridge stapling device was placed across the appendix and fired. The appendix was then placed in an EndoCatch and brought out through the suprapubic port. Pneumoperitoneum was reestablished, and hemostasis was checked for and noted to be good, and the suture line to be intact without evidence of bleeding. Next, all ports were removed under laparoscopic vision without evidence of bleeding from the port sites. The pneumoperitoneum was evacuated. All port sites were infiltrated with 0.5% Marcaine, and the defect at the suprapubic and umbilical port sites were closed with a single 0 Vicryl figure-of-8 suture. Skin incisions were closed with 4-0 Biosyn in a subcuticular fashion followed by Steri-Strips and Band-Aid dressings. The procedure was then terminated, and the patient was roused from general anesthesia and transferred to the post-anesthesia care unit in stable condition, awake and alert. ESTIMATED BLOOD LOSS: Approximately 20 mL. REPLACEMENTS: Crystalloid. DRAINS: None. SPECIMENS: Appendix to Pathology. I, Tiago Stanley, was physically present in the operating room from the time the patient was placed on the operating table until she was transferred to the post-anesthesia care unit in my accompaniment. MD JOE Samano/[id number]
--- NOTE | 2016-12-17 10:29 | SURG ---
Surgery Coach [employer] Note Coach Professional Athletes: Melissa Gupta PA-C Date of Service: 12/13/16 Diagnosis: chronic appendicitis Procedure: laparoscopic appendectomy I was present for the entirety of the operative procedure. For further detail, please refer to operative report. Visit type - Case Type Case Type: Scheduled Admission
--- NOTE | 2016-12-18 15:33 | PATH ---
Surgical Pathology Report Patient Name: LLOYD LUI [facility] Rec. 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 NO SIGNIFICANT DISSECTING ACELLULAR MUCIN PRESENT. TUMOR LOCATION: DISTAL APPENDIX. TUMOR SIZE: ~2.0 CM. TUMOR EXTENT: LIMITED TO THE APPENDIX MUCOSA. NO HIGH GRADE CYTOLOGY OR DESTRUCTIVE TUMOR INVASION IDENTIFIED. NO LYMPHOVASCULAR INVASION IDENTIFIED. SURGICAL RESECTION MARGIN: NEGATIVE FOR TUMOR. UNINVOLVED APPENDIX: REACTIVE LYMPHOID HYPERPLASIA. PATHOLOGIC STAGING: SEE COMMENT. Comment: The sections show dilated distal part of the appendix with low grade dysplastic (adenomatous) lining and filled with mucin. No dissecting acellular mucin is identified. No high grade dysplasia or invasive carcinoma is identified. This tumor is currently classified as low-grade appendicial mucinous neoplasm (LAMN) and is considered a low grade malignant tumor. The staging would correspond to pTis; however, TNM pT staging is not directly applicable to low-grade appendicial mucinous neoplasms. The patient's ovaries have to be examined for synchronous neoplasia. The case was discussed with Dr. Stanley on 12/18/16. Comments Surgical Pathology Cancer Case Summary for appendix tumors Specimen _x_ Appendix Procedure _x_ Appendectomy Tumor Site _x_ Distal appendix Tumor Size _x_ ~2.0 cm Histologic Type _x_ Low-grade appendiceal mucinous neoplasm Histologic Grade _x_ Grade 1 (well differentiated) Microscopic Tumor Extension _x_ Tumor is limited to the mucosa Margins: Proximal Margin _x_ Uninvolved by low-grade appendiceal mucinous neoplasm Mesenteric margin _x_ Uninvolved by low-grade appendiceal mucinous neoplasm Closest resection margin: mesenteric (~ 5 mm from tumor) Lymph-Vascular Invasion _x_ Not identified Tumor Deposits _x_ Not identified Pathologic Staging (pTNM) Primary Tumor (pT): not directly applicable Regional Lymph Nodes (pN): pNX (cannot be assessed, no nodes submitted or found) Distant Metastasis (pM): not applicable Electronically Signed Ady Pelletier M.D. Gross Description Received in formalin, labeled "appendix" is a 5.3 cm in length dilated and appearing vermiform appendix with a stapled margin of resection and moderate attached fat. The serosa is ding-pink and smooth. Sectioning reveals an unremarkable lumen with an edematous appearing appendiceal wall. The wall of the appendix averages 0.2 cm. in thickness. Piece Work Checker sections are submitted in 2 cassettes as follows: 1-bisected distal tip of appendix; 2-cross sections of appendix. The remainder of the appendix is submitted as follows: 3-resection margin; 5-5-gnclnroyr of specimen. 12/13/201612/13/2016
== END 2016-12-13 16:50 | disposition home or self-care (01) ==
LOC: JASU-SURG 07:23 → MERGE 09:00 → JASU-SURG 16:50
PROVIDERS: ATTEND Surgery
PROC: 0DTJ4ZZ Resection of Appendix, Percutaneous Endoscopic Approach (ICD-10-PCS; principal; 2016-12-13 09:00)
DX: K36 Other appendicitis (principal)
CPT/HCPCS: 88304-TC; 94760

== ENCOUNTER 2017-06-24 14:55 | Emergency (ER) | payer OTHER ==
[2017-06-24 15:04] VITALS: BP 106/61; PULSE 102; TEMP 99.4; BMI 28.9
--- NOTE | 2017-06-24 15:05 | PDOC ---
Rapid Medical Evaluation Chief Complaint: Diarrhea Time Seen by Provider: 06/24/17 15:01 Medical Evaluation: Allergies Allergy/AdvReac Type Severity Reaction Status Date / Time No Known Allergies Allergy Verified 06/24/17 15:00 06/24/17 15:02 Pt here with c/o : diarrhea since 3am, vomited x 1, recent dx of colon tumor ? malignant, ate in cafeteria yesterday. Pt evaluated briefly: VSS, Pt ordered for: ua, ucx, cbc, comp Pt to proceed to the ED Discharge Disposition - Diagnosis Diarrhea - Referrals Referrals: Kierra Srivastava MD [Primary Care Provider] - - Patient Instructions - Post Discharge Activity
[2017-06-24 16:35] LABS: MCH 31.5 pg (25.7-33.7); MCHC 34.1 g/dl (32.0-36.0); MEAN CELL VOLUME 92.3 fl (80-96); MEAN PLT VOLUME 9.8 fl (7.5-11.1); PLATELET COUNT 250 K/MM3 (134-434); RDW 13.1 % (11.6-15.6); WHITE BLOOD COUNT 9.1 K/mm3 (4.0-10.0)
[2017-06-24 17:10] LABS: ALBUMIN 3.9 g/dl (3.4-5.0); ANION GAP 9 (8-16); BILIRUBIN,TOTAL 0.7 mg/dL (0.2-1.0); CALCIUM 8.7 mg/dL (8.5-10.1); CO2 24 mmol/L (21-32); CREATININE 0.7 mg/dL (0.55-1.02); GLUCOSE,RANDOM 127 mg/dL (74-106); SGOT/AST 21 U/L (15-37); SGPT/ALT 35 U/L (12-78); TOT PROT 7.9 g/dl (6.4-8.2)
[2017-06-24 17:11] LABS: ALK PHOS 113 U/L (45-117)
[2017-06-24 19:26] LABS: PH,URINE 5.5 (5.0-8.0); URINE APPEARANCE CLEAR; URINE BILIRUBIN 1+ (NEGATIVE); URINE BLOOD 1+ (NEGATIVE); URINE COLOR YELLOW; URINE GLUCOSE (UA) NEGATIVE (NEGATIVE); URINE KETONE NEGATIVE (NEGATIVE); URINE NITRITE NEGATIVE (NEGATIVE); URINE UROBILINOGEN 0.2 mg/dL (0.2-1.0)
[2017-06-24 19:36] LABS: URINE PROTEIN 1+ (NEGATIVE)
[2017-06-24] MEDS ORDERED: HYDROmorphone HCL CARPU-JECT 1 MG/1 ML DISP.SYRIN IVPUSH PRN (21:40)
[2017-06-24 21:43] LABS: URINE BACTERIA RARE /hpf (NONE SEEN); URINE MUCUS MANY; URINE RBC 27 /hpf (0-3); URINE WBC 15 /hpf (3-5)
[2017-06-24] MEDS ORDERED: D5-1/2NS+20 MEQ KCL - 20 MEQ/1,000 ML INFUS.BAG IV SCH (21:45)
[2017-06-24] MEDS ORDERED: PIPERACILLIN/TAZOB 3.375 GM 3.375 GM in DEXTROSE 5%-WATER - 50 ML IVPB ONE (22:00)
[2017-06-25] MEDS ORDERED: PIPERACILLIN/TAZOB 3.375 GM/50 ML PRE-DOCKED IVPB SCH (02:00)
[2017-06-25] MEDS ORDERED: PANTOPRAZOLE SODIUM 40 MG VIAL IVPUSH SCH (10:00)
[2017-06-25 10:04] LABS: URINE LEUK ESTERASE Negative (NEGATIVE)
== END 2017-06-24 21:32 | disposition left against medical advice (07) ==
LOC: JER 14:55
DX: R19.7 Diarrhea, unspecified (principal); D49.0 Neoplasm of unspecified behavior of digestive system
CPT/HCPCS: 36415; 80053; 81003; 81015; 85027; 87086; 99281-25

== ENCOUNTER → 2021-06-14 | Day surgery (SDC) | payer OTHER | END | disposition home or self-care (01) | LOC: FMAMMOTONE 12:16 | PROVIDERS: ATTEND Family Medicine | PROC: 0HBT3ZX Excision of Right Breast, Percutaneous Approach, Diagnostic (ICD-10-PCS; principal; 2021-06-14) | DX: D24.1 Benign neoplasm of right breast (principal); N64.89 Other specified disorders of breast; R92.0 Mammographic microcalcification found on diagnostic imaging of breast | CPT/HCPCS: 19081; 76098-TC-FY; 87899; 88305-TC; A4648 ==

== ENCOUNTER 2021-10-21 18:19 | Emergency (ER) | payer OTHER ==
[2021-10-21 18:25] VITALS: BMI 33.1
[2021-10-21] MEDS ORDERED: ACETAMINOPHEN 325 MG TABLET (FP) PO ONE (18:28)
[2021-10-21 21:14] LABS: EPI CELLS 5 /uL (0-25.1); HYALINE CASTS 0 /uL (0-3.1); PH,URINE 5.5 (5.0-8.0); URINE APPEARANCE CLEAR; URINE BACTERIA 53 /uL (0-1359); URINE BILIRUBIN NEGATIVE (NEGATIVE); URINE COLOR YELLOW; URINE GLUCOSE (UA) NEGATIVE (NEGATIVE); URINE KETONE NEGATIVE (NEGATIVE); URINE LEUK ESTERASE TRACE (NEGATIVE); URINE NITRITE NEGATIVE (NEGATIVE); URINE PROTEIN NEGATIVE (NEGATIVE); URINE RBC 20 /uL (0-23.9); URINE UROBILINOGEN 0.2 mg/dL (0.2-1.0); URINE WBC 16 /uL (0-25.8)
[2021-10-21 21:26] VITALS: BP 129/60; PULSE 81; TEMP 97.7
== END 2021-10-21 21:56 | disposition home or self-care (01) ==
LOC: JER 18:19
DX: R50.9 Fever, unspecified (principal); R51.9 Headache, unspecified
CPT/HCPCS: 71046-TC-FY; 81003; 87086; 99284-25; C9803-CS; U0003; U0005

== ENCOUNTER 2022-03-19 18:04 | Emergency (ER) | payer OTHER ==
[2022-03-19 18:18] VITALS: BP 121/60; PULSE 103; RESP 18; TEMP 100.8; BMI 33.9
[2022-03-19] MEDS ORDERED: IBUPROFEN 600 MG TABLET (FP) PO ONE ×2 (20:11→20:14)
== END 2022-03-19 21:32 | disposition home or self-care (01) ==
LOC: JER 18:04
DX: U07.1 COVID-19 (principal)
CPT/HCPCS: 0241U-QW; 99283-25

== ENCOUNTER 2024-04-06 07:22 | Emergency (ER) | payer OTHER ==
[2024-04-06 07:34] VITALS: BP 149/86; PULSE 90; RESP 16; TEMP 99; BMI 38.5
== END 2024-04-06 09:13 | disposition home or self-care (01) ==
LOC: JER 07:22
DX: R09.81 Nasal congestion (principal); R05.9 Cough, unspecified; U07.1 COVID-19
CPT/HCPCS: 99282-25